=== PATIENT | male | born 1965 | race Caucasian/White ===

== ENCOUNTER 2019-11-02 13:27 | Emergency (ER) | payer OTHER ==
[2019-11-02] MEDS ORDERED: Sodium Chloride 0.9% 10 ML Syringe FLUSH PRN (14:04)
[2019-11-02] MEDS ORDERED: Sodium Chloride 0.9% 1,000 ML IV ONE (14:04)
--- NOTE | 2019-11-02 14:31 | EDM.PDOC ---
ED HPI GENERAL MEDICAL PROBLEM - General Chief Complaint: Respiratory Problem Stated Complaint: LOW BLOOD PRESSURE SENT BY [facility] Time Seen by Provider: 11/02/19 13:45 Source of Information: Reports: Patient, Old Records (from [place] Visit, plus chest x-rays pushed to us), RN Notes Reviewed History Limitations: Reports: No Limitations - History of Present Illness INITIAL COMMENTS - FREE TEXT/NARRATIVE: Patient is a 54-year-old male who presents to the ED for the evaluation of low blood pressure. Patient states that he was sent here by the [place] walk-in clinic. He notes that he has been sick for around 1 week now, he went to the walk-in clinic beginning of this last week, had a chest x-ray done and was given a shot of 80 mg Depo-Medrol. He was given an albuterol inhaler, and had his nebulizer treatments refilled. He notes however nothing is really gotten much better over the week, and he states that he has a decreased appetite and has not really been eating much. He was also diagnosed with thrush again at the walk-in clinic today. He thinks that this might be part of the reason why he was having issues not eating, as he states everything tasted horrible. He does note that he is a smoker, 1 pack/day for 40 years, and he has not had any formal diagnosis of COPD. Patient's lab work done at the walk-in clinic demonstrated a white blood cell count that is within normal limits, hemoglobin that is mildly elevated at 17.7 with an increased hematocrit of 50.7. Platelet count was 101 slightly decreased. No metabolic panel was done at today's visit , but he did have a basic metabolic panel done on the when he was originally evaluated, and there were no abnormalities noted. Of note the patient's blood pressure at time of triage was 104/71, and he was mildly orthostatic as per nursing at triage. Patient today is complaining of generalized body aches, a cough that is productive at times, no fevers no chills no nausea no vomiting no diarrhea no abdominal pain. 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 Social & Family History - Tobacco Use Smoking Status *Q: Heavy Tobacco Smoker Years of Tobacco use: 40 Packs/Tins Daily: 1 - Caffeine Use Caffeine Use: Reports: Coffee - Alcohol Use Days Per Week of Alcohol Use: 7 Number of Drinks Per Day: 2 Total Drinks Per Week: 14 Alcohol Use Frequency: Daily - Recreational Drug Use Recreational Drug Use: No ED ROS GENERAL - Review of Systems Review Of Systems: See Below Constitutional: Reports: Malaise (generalized), Decreased Appetite. Denies: Fever, Chills, Weight Loss Respiratory: Reports: Cough (intermittent productive cough). Denies: Shortness of Breath Cardiovascular: Denies: Chest Pain GI/Abdominal: Reports: Decreased Appetite. Denies: Abdominal Pain, Constipation , Diarrhea, Nausea, Vomiting Skin: Denies: Cyanosis Neurological: Denies: Headache ED EXAM, GENERAL - Physical Exam Exam: See Below Exam Limited By: No Limitations General Appearance: Alert, WD/WN, No Apparent Distress Eye Exam: Bilateral Eye: EOMI, Normal Inspection, PERRL Respiratory/Chest: No Respiratory Distress, Lungs Clear, No Accessory Muscle Use , Chest Non-Tender, Decreased Breath Sounds (diffuse bilaterally) Cardiovascular: Normal Peripheral Pulses, Regular Rate, Rhythm, No Edema, No Murmur Peripheral Pulses: 3+: Radial (L), Radial (R) GI/Abdominal: Normal Bowel Sounds, Soft, Non-Tender, No Distention, No Mass Extremities: Normal Inspection, Normal Capillary Refill Neurological: Alert, Oriented, Normal Cognition, No Motor/Sensory Deficits Psychiatric: Normal Affect, Normal Mood Skin Exam: Warm, Dry, Intact, Normal Color, No Rash Course - Vital Signs Last Recorded V/S: Last Vital Signs Temp 98.8 F 11/02/19 13:35 Pulse 88 11/02/19 13:35 Resp 20 11/02/19 13:35 BP 104/71 11/02/19 13:35 Pulse Ox 91 L 11/02/19 13:35 Orthostatic Blood Pressure [ 89/64 Standing] Orthostatic Blood Pressure [ 99/63 Sitting] Orthostatic Blood Pressure [ 97/65 Supine] - Orders/Labs/Meds Orders: Active Orders 24 hr Category Date Time Status Orthostatic Vital Signs [RC] ASDIRECTED Care 11/02/19 13:52 Ordered Peripheral IV Care [RC] . DIRECTED Care 11/02/19 14:04 Ordered Sodium Chloride 0.9% [Saline Flush] Med 11/02/19 14:04 Ordered 10 ml FLUSH ASDIRECTED PRN Peripheral IV Insertion Adult [OM.PC] Stat Oth 11/02/19 14:04 Ordered Medication Orders Sodium Chloride (Saline Flush) 10 ml FLUSH ASDIRECTED PRN PRN Reason: Keep Vein Open Last Admin: 11/02/19 14:28 Dose: 10 ml Meds: Medications Generic Name Dose Route Start Last Admin Trade Name Freq PRN Reason Stop Dose Admin Sodium Chloride 10 ml 11/02/19 14:04 11/02/19 14:28 Saline Flush FLUSH 10 ml ASDIRECTED PRN Administration Keep Vein Open Discontinued Medications Generic Name Dose Route Start Last Admin Trade Name Freq PRN Reason Stop Dose Admin Sodium Chloride 1,000 mls @ 999 mls/hr 11/02/19 14:04 11/02/19 14:29 Normal Saline IV 11/02/19 15:04 999 mls/hr ONETIME ONE Administration - Re-Assessments/Exams Free Text/Narrative Re-Assessment/Exam: 11/02/19 14:39 Patient presents to the ED for the evaluation of his low blood pressure that was discovered at walk-in clinic today. To the patient's symptomology, I will check an influenza swab as I do not see one that was done on his visits at [place] at 10/30 or 11/02. He will be given an IV with some IV fluids as well for his blood pressure, and this will be reassessed when the IV fluids are done. No labs will be redrawn. 11/02/19 16:03 Patient influenza screen is back, and is negative. Will discharge home with general recommendations. Departure - Departure Time of Disposition: 16:04 Disposition: Home, Self-Care 01 Condition: Fair Clinical Impression: Low blood pressure reading - Discharge Information *PRESCRIPTION DRUG MONITORING PROGRAM REVIEWED*: No *COPY OF PRESCRIPTION DRUG MONITORING REPORT IN PATIENT JOSE MARIA: No Instructions: Chronic Obstructive Pulmonary Disease Exacerbation, [id number] Referrals: PCP,None [Primary Care Provider] - Forms: ED Department Discharge Additional Instructions: You were evaluated in the ER today regarding your low blood pressure. You were given IV fluids and management of this. Your influenza screen was negative at today's visit. This does not mean however just because the flu screen is negative, that you do not have influenza. As this is not a perfect test. The symptoms you are experiencing, would be more consistent with a diagnosis of influenza at this time. Recommend general symptomatic treatment, use [id number] medications such as Tylenol/ibuprofen, in general other cold/flu relief for symptomatic control. Please take the medication for your thrush as directed, as this will need to be cleared up. Recommend clear fluids, or clear liquid diet and advance to bland as tolerated over the next 24 to 48 hours. Please return to the ER at any time if your symptoms change or worsen. Sepsis Event Note - Evaluation Sepsis Screening Result: No Definite Risk - Focused Exam Vital Signs: Vital Signs Temp Pulse Resp BP Pulse Ox 11/02/19 13:35 98.8 F 88 20 104/71 91 L Date Exam was Performed: 11/02/19 Time Exam was Performed: 16:03 - My Orders Last 24 Hours: My Active Orders 11/02/19 13:52 Orthostatic Vital Signs [RC] ASDIRECTED 11/02/19 14:04 Peripheral IV Care [RC] . DIRECTED Sodium Chloride 0.9% [Saline Flush] 10 ml FLUSH ASDIRECTED PRN Peripheral IV Insertion Adult [OM.PC] Stat - Assessment/Plan Last 24 Hours: My Active Orders 11/02/19 13:52 Orthostatic Vital Signs [RC] ASDIRECTED 11/02/19 14:04 Peripheral IV Care [RC] . DIRECTED Sodium Chloride 0.9% [Saline Flush] 10 ml FLUSH ASDIRECTED PRN Peripheral IV Insertion Adult [OM.PC] Stat
== END 2019-11-02 16:20 | disposition home or self-care (01) ==
LOC: JD.ED 13:27
DX: R03.1 Nonspecific low blood-pressure reading (principal); F17.210 Nicotine dependence, cigarettes, uncomplicated
CPT/HCPCS: 87804; 96360; 99284; J7030; 99283

== ENCOUNTER 2019-11-05 07:34 | Inpatient (IN) | payer OTHER ==
[2019-11-05] MEDS ORDERED: Albuterol/Ipratropium 3.0-0.5 MG/3 ML Neb Soln NEB ONE (07:55)
[2019-11-05] MEDS ORDERED: methylPREDNISolone Sodium Succinate 125 MG/2 ML SDV IVPUSH ONE (07:55)
[2019-11-05] MEDS ORDERED: cefTRIAXone 2 GM in Sodium Chloride 0.9% 100 ML IV ONE (07:56)
--- NOTE | 2019-11-05 08:00 | EDM.PDOC ---
ED HPI GENERAL MEDICAL PROBLEM - General Chief Complaint: Respiratory Problem Stated Complaint: COUGH/SOB Time Seen by Provider: 11/05/19 07:42 Source of Information: Reports: Patient, Family History Limitations: Reports: No Limitations - History of Present Illness INITIAL COMMENTS - FREE TEXT/NARRATIVE: The patient presents with shortness of breath and productive cough. This has been going on since about October 29. He was seen at the clinic a couple times and once here in the ER. He was given some solu-medrol, albuterol inhaler and some nystatin for oral thrush. He has gotten worse. He denies having a fever. He has no formal diagnosis of COPD but he does smoke but not since he has been sick. He has not been able to eat but he has been drinking fluids. He has no other health problems. He has no abdominal pain, nausea or vomiting. His oxygen saturations were 84% on arrival. He was put on oxygen. Onset: Gradual Duration: Week(s): Severity: Moderate Improves with: Reports: None Worsens with: Reports: None Associated Symptoms: Reports: Cough, Fever/Chills, Shortness of Breath. Denies : Chest Pain, Headaches, Nausea/Vomiting Generalized Pain Score (Numeric/FACES): 6 - Related Data Allergies Allergy/AdvReac Type Severity Reaction Status Date / Time No Known Allergies Allergy Verified 11/05/19 07:48 Home Meds: Home Meds Albuterol Sulfate [Albuterol Sulfate Hfa] 1 - 2 puff INH ASDIRECTED 11/05/19 [ History] Nystatin 100,000 unit PO QID 11/05/19 [History] Past Medical History HEENT History: Reports: Retinal Detachment Respiratory History: Reports: Bronchitis, Recurrent, COPD (not officially diagnosed, but with smoking history he clinical has COPD, likely emphysema type) , Pneumonia, Recurrent - Infectious Disease History Infectious Disease History: Reports: Chicken Pox, Mumps - Past Surgical History HEENT Surgical History: Reports: Detached Retina Musculoskeletal Surgical History: Reports: Other (See Below) Other Musculoskeletal Surgeries/Procedures:: discs replaced to neck. Social & Family History - Caffeine Use Caffeine Use: Reports: Coffee ED ROS GENERAL - Review of Systems Review Of Systems: See Below Constitutional: Reports: Fever, Chills HEENT: Reports: No Symptoms Respiratory: Reports: Shortness of Breath, Cough Cardiovascular: Reports: No Symptoms Endocrine: Reports: No Symptoms GI/Abdominal: Reports: No Symptoms : Reports: No Symptoms Musculoskeletal: Reports: No Symptoms ED EXAM, GENERAL - Physical Exam Exam: See Below Exam Limited By: No Limitations General Appearance: Alert, No Apparent Distress Ears: Normal External Exam Nose: Normal Inspection Head: Atraumatic, Normocephalic Neck: Normal Inspection Respiratory/Chest: No Respiratory Distress, Decreased Breath Sounds (more in the right lower lobe), Rhonchi Cardiovascular: Regular Rate, Rhythm, No Edema, No Murmur GI/Abdominal: Soft, Non-Tender, No Organomegaly, No Mass Back Exam: Normal Inspection Extremities: Normal Inspection Course - Vital Signs Last Recorded V/S: Last Vital Signs Temp 98.0 F 11/05/19 07:42 Pulse 101 H 11/05/19 07:42 Resp 20 11/05/19 07:42 BP 120/74 11/05/19 07:42 Pulse Ox 92 L 11/05/19 09:30 - Orders/Labs/Meds Orders: Active Orders 24 hr Category Date Time Status Cardiac Monitoring [RC] . DIRECTED Care 11/05/19 07:53 Active Oxygen Therapy [RC] PRN Care 11/05/19 07:53 Active Peripheral IV Care [RC] . DIRECTED Care 11/05/19 07:54 Active RT Aerosol Therapy [RC] ASDIRECTED Care 11/05/19 07:55 Active RT Aerosol Therapy [RC] ASDIRECTED Care 11/05/19 09:30 Active Chest 2V [CR] Stat Exams 11/05/19 07:54 Taken CULTURE BLOOD [BC] Stat Lab 11/05/19 07:54 Ordered CULTURE BLOOD [BC] Stat Lab 11/05/19 07:54 Ordered Sodium Chloride 0.9% [Normal Saline] 1,000 ml Med 11/05/19 08:00 Active IV ASDIRECTED Sodium Chloride 0.9% [Saline Flush] Med 11/05/19 07:53 Active 10 ml FLUSH ASDIRECTED PRN Blood Culture x2 Reflex Set [OM.PC] Stat Oth 11/05/19 07:54 Ordered Peripheral IV Insertion Adult [OM.PC] Stat Oth 11/05/19 07:53 Ordered Medication Orders Sodium Chloride (Normal Saline) 1,000 mls @ 125 mls/hr IV ASDIRECTED [facility] Last Admin: 11/05/19 08:19 Dose: 125 mls/hr Sodium Chloride (Saline Flush) 10 ml FLUSH ASDIRECTED PRN PRN Reason: Keep Vein Open Last Admin: 11/05/19 08:22 Dose: 10 ml Labs: Laboratory Tests 11/05/19 11/05/19 11/05/19 Range/Units 08:10 08:10 08:10 WBC 6.66 (4.23-9.07) K/mm3 RBC 5.00 (4.63-6.08) M/mm3 Hgb 15.1 (13.7-17.5) gm/dl Hct 42.8 (40.1-51.0) % MCV 85.6 (79.0-92.2) fl MCH 30.2 (25.7-32.2) pg MCHC 35.3 (32.2-35.5) g/dl RDW Std Deviation 43.0 (35.1-43.9) fL Plt Count 87 L (163-337) K/mm3 MPV 10.3 (9.4-12.3) fl Neut % (Auto) 86.9 H (34.0-67.9) % Lymph % (Auto) 8.3 L (21.8-53.1) % Glascock % (Auto) 3.8 L (5.3-12.2) % Eos % (Auto) 0 L (0.8-7.0) Baso % (Auto) 0.5 (0.1-1.2) % Neut # (Auto) 5.80 H (1.78-5.38) K/mm3 Lymph # (Auto) 0.55 L (1.32-3.57) K/mm3 Gl[place]ock # (Auto) 0.25 L (0.30-0.82) K/mm3 Eos # (Auto) 0.00 L (0.04-0.54) K/mm3 Baso # (Auto) 0.03 (0.01-0.08) K/mm3 Manual Slide Review Abnormal smear Puncture Site ABG pH (7.35-7.45) ABG pCO2 (35.0-45.0) mmHg ABG pO2 (80.0-100.0) mmHg ABG HCO3 (22.0-26.0) meq/L ABG O2 Saturation (96.0-97.0) % ABG Base Excess (-2-2.0) Jj Test O2 Delivery Device Oxygen Flow Rate FiO2 (21.00-100.00) % Sodium 133 L (136-145) mEq/L Potassium 4.6 (3.5-5.1) mEq/L Chloride 99 (98-107) mEq/L Carbon Dioxide 21 (21-32) mEq/L Anion Gap 17.6 H (5-15) BUN 33 H (7-18) mg/dL Creatinine 1.1 (0.7-1.3) mg/dL Est Cr Clr Drug Dosing 74.57 mL/min Estimated GFR (MDRD) > 60 (>60) mL/min BUN/Creatinine Ratio 30.0 H (14-18) Glucose 118 H (74-106) mg/dL Lactic Acid 1.1 (0.4-2.0) mmol/L Calcium 8.1 L (8.5-10.1) mg/dL Total Bilirubin 0.3 (0.2-1.0) mg/dL AST 183 H (15-37) U/L ALT 91 H (16-63) U/L Alkaline Phosphatase 45 L (46-116) U/L C-Reactive Protein 18.9 H* (<1.0) mg/dL Total Protein 7.1 (6.4-8.2) g/dl Albumin 2.6 L (3.4-5.0) g/dl Globulin 4.5 gm/dL Albumin/Globulin Ratio 0.6 L (1-2) 11/05/19 Range/Units 09:29 WBC (4.23-9.07) K/mm3 RBC (4.63-6.08) M/mm3 Hgb (13.7-17.5) gm/dl Hct (40.1-51.0) % MCV (79.0-92.2) fl MCH (25.7-32.2) pg MCHC (32.2-35.5) g/dl RDW Std Deviation (35.1-43.9) fL Plt Count (163-337) K/mm3 MPV (9.4-12.3) fl Neut % (Auto) (34.0-67.9) % Lymph % (Auto) (21.8-53.1) % Glascock % (Auto) (5.3-12.2) % Eos % (Auto) (0.8-7.0) Baso % (Auto) (0.1-1.2) % Neut # (Auto) (1.78-5.38) K/mm3 Lymph # (Auto) (1.32-3.57) K/mm3 Glascock # (Auto) (0.30-0.82) K/mm3 Eos # (Auto) (0.04-0.54) K/mm3 Baso # (Auto) (0.01-0.08) K/mm3 Manual Slide Review Puncture Site Rt radial ABG pH 7.41 (7.35-7.45) ABG pCO2 33.6 L (35.0-45.0) mmHg ABG pO2 59.0 L (80.0-100.0) mmHg ABG HCO3 21.0 L (22.0-26.0) meq/L ABG O2 Saturation 88.9 L (96.0-97.0) % ABG Base Excess -2.3 L (-2-2.0) Jj Test Positive O2 Delivery Device Nasal cannula Oxygen Flow Rate 4.0 FiO2 0.00 L (21.00-100.00) % Sodium (136-145) mEq/L Potassium (3.5-5.1) mEq/L Chloride (98-107) mEq/L Carbon Dioxide (21-32) mEq/L Anion Gap (5-15) BUN (7-18) mg/dL Creatinine (0.7-1.3) mg/dL Est Cr Clr Drug Dosing mL/min Estimated GFR (MDRD) (>60) mL/min BUN/Creatinine Ratio (14-18) Glucose (74-106) mg/dL Lactic Acid (0.4-2.0) mmol/L Calcium (8.5-10.1) mg/dL Total Bilirubin (0.2-1.0) mg/dL AST (15-37) U/L ALT (16-63) U/L Alkaline Phosphatase (46-116) U/L C-Reactive Protein (<1.0) mg/dL Total Protein (6.4-8.2) g/dl Albumin (3.4-5.0) g/dl Globulin gm/dL Albumin/Globulin Ratio (1-2) Meds: Medications Generic Name Dose Route Start Last Admin Trade Name Freq PRN Reason Stop Dose Admin Sodium Chloride 1,000 mls @ 125 mls/hr 11/05/19 08:00 11/05/19 08:19 Normal Saline IV 125 mls/hr ASDIRECTED KYLEE Administration Sodium Chloride 10 ml 11/05/19 07:53 11/05/19 08:22 Saline Flush FLUSH 10 ml ASDIRECTED PRN Administration Keep Vein Open Discontinued Medications Generic Name Dose Route Start Last Admin Trade Name Jennifer PRN Reason Stop Dose Admin Albuterol 2.5 mg 11/05/19 09:30 11/05/19 10:05 Proventil Neb Soln NEB 11/05/19 09:31 2.5 mg ONETIME ONE Administration Albuterol/Ipratropium 3 ml 11/05/19 07:55 11/05/19 08:02 Duoneb 3.0-0.5 Mg/3 Ml NEB 11/05/19 07:56 3 ml ONETIME ONE Administration Hydromorphone HCl 0.5 mg 11/05/19 08:52 11/05/19 09:00 Dilaudid IVPUSH 11/05/19 08:53 0.5 mg ONETIME ONE Administration Ceftriaxone Sodium 2 gm/ 100 mls @ 200 mls/hr 11/05/19 07:56 11/05/19 08:34 Sodium Chloride IV 11/05/19 08:25 200 mls/hr ONETIME ONE Administration Methylprednisolone Sodium Succinate 125 mg 11/05/19 07:55 11/05/19 08:19 Solu-Medrol IVPUSH 11/05/19 07:56 125 mg ONETIME ONE Administration - Re-Assessments/Exams Free Text/Narrative Re-Assessment/Exam: 11/05/19 08:07 I ordered oxygen, IV NS at 125ml/hr, duoneb, solu-medrol 125mg IV, labs blood cultures, CXR and rocephin 2 grams IV. 11/05/19 09:27 His CBC looks good. His Na was low at 133. His anion gap was elevated at 17.6. His creatinine was 1.1. His glucose is 118. His AST was 183. His ALT was elevated at 91. His CRP is pending. 11/05/19 10:37 The lactic acid is negative. 11/05/19 10:41 His CRP is elevated at 18.2. His oxygen saturations were 89% on 3L. I upped his oxygen and did an ABG. His pO2 was 59 and pH was normal. His PCO2 was 33.6. He will need to be admitted. I called Dr Allen and she agreed to the admission. Departure - Departure Time of Disposition: 10:45 Disposition: Admitted As Inpatient 64 Condition: Poor Clinical Impression: Hypoxia Pneumonia Qualifiers: Pneumonia type: due to unspecified organism Laterality: right Lung location: middle lobe of lung Qualified Code(s): J18.9 - Pneumonia, unspecified organism - Discharge Information Referrals: PCP,None [Primary Care Provider] - Forms: ED Department Discharge Sepsis Event Note - Evaluation Sepsis Screening Result: No Definite Risk - Focused Exam Vital Signs: Vital Signs Temp Pulse Resp BP Pulse Ox Pulse Ox 11/05/19 09:30 92 L 11/05/19 07:55 90 L 11/05/19 07:42 98.0 F 101 H 20 120/74 84 L Date Exam was Performed: 11/05/19 Time Exam was Performed: 10:41 - My Orders Last 24 Hours: My Active Orders 11/05/19 07:53 Cardiac Monitoring [RC] . DIRECTED Oxygen Therapy [RC] PRN Sodium Chloride 0.9% [Saline Flush] 10 ml FLUSH ASDIRECTED PRN Peripheral IV Insertion Adult [OM.PC] Stat 11/05/19 07:54 Peripheral IV Care [RC] . DIRECTED Chest 2V [CR] Stat CULTURE BLOOD [BC] Stat CULTURE BLOOD [BC] Stat Blood Culture x2 Reflex Set [OM.PC] Stat 11/05/19 07:55 RT Aerosol Therapy [RC] ASDIRECTED 11/05/19 08:00 Sodium Chloride 0.9% [Normal Saline] 1,000 ml IV ASDIRECTED 11/05/19 09:30 RT Aerosol Therapy [RC] ASDIRECTED - Assessment/Plan Last 24 Hours: My Active Orders 11/05/19 07:53 Cardiac Monitoring [RC] . DIRECTED Oxygen Therapy [RC] PRN Sodium Chloride 0.9% [Saline Flush] 10 ml FLUSH ASDIRECTED PRN Peripheral IV Insertion Adult [OM.PC] Stat 11/05/19 07:54 Peripheral IV Care [RC] . DIRECTED Chest 2V [CR] Stat CULTURE BLOOD [BC] Stat CULTURE BLOOD [BC] Stat Blood Culture x2 Reflex Set [OM.PC] Stat 11/05/19 07:55 RT Aerosol Therapy [RC] ASDIRECTED 11/05/19 08:00 Sodium Chloride 0.9% [Normal Saline] 1,000 ml IV ASDIRECTED 11/05/19 09:30 RT Aerosol Therapy [RC] ASDIRECTED
[2019-11-05] MEDS: Sodium Chloride 0.9% 1,000 ML IV SCH ×2 (08:19→17:58)
[2019-11-05] MEDS: Sodium Chloride 0.9% 10 ML Syringe FLUSH PRN (08:22)
[2019-11-05] MEDS ORDERED: HYDROmorphone 0.5 MG/0.5 ML Syringe IVPUSH ONE (08:52)
[2019-11-05] MEDS ORDERED: Albuterol 0.083% 2.5 MG/3 ML Neb Soln NEB ONE (09:30)
[2019-11-05] MEDS ORDERED: Diphenhydramine/Lidocaine/MagAl/Simethicone 119 ML Bottle PO PRN (11:19)
--- NOTE | 2019-11-05 11:48 | PCM.HP.2 ---
H&P History of Present Illness - General Date of Service: 11/05/19 Admit Problem/Dx: Admission Diagnosis/Problem Admission Diagnosis/Problem Pneumonia - History of Present Illness Initial Comments - Free Text/Narative: This is a 54 year old male who is a daily smoker and comes tot he ED complaining of worsening productive cough and shortness of breath. As per patient he started feeling ill around [place] when he started having coughing episodes productive of white sputum associated with intermittent shortness of breath, this continued to get worse for which he consulted outpatient clinic, he was diagnosed with oral thrush and given ProAir as needed prescription. He reconsulted the clinic twice and was sent over here for hypotension a couple of days ago. He returns today due to worsening symptoms with productive cough or different colors but thicker . States his mouth continues to hurt despite using scheduled Nystatin. He associates symptoms with fatigue, malaise, weakness, loss of appetite, diaphoresis, chills Denies any sick contacts Generalized Pain Score (Numeric/FACES): 6 - Related Data Allergies/Adverse Reactions: Allergies Allergy/AdvReac Type Severity Reaction Status Date / Time No Known Allergies Allergy Verified 11/05/19 07:48 Home Medications: Home Meds Albuterol Sulfate [Albuterol Sulfate Hfa] 1 - 2 puff INH ASDIRECTED 11/05/19 [ History] Nystatin 100,000 unit PO QID 11/05/19 [History] Past Medical History HEENT History: Reports: Retinal Detachment Respiratory History: Reports: Bronchitis, Recurrent, COPD, Pneumonia, Recurrent - Infectious Disease History Infectious Disease History: Reports: Chicken Pox, Mumps - Past Surgical History HEENT Surgical History: Reports: Detached Retina Musculoskeletal Surgical History: Reports: Other (See Below) Other Musculoskeletal Surgeries/Procedures:: discs replaced to neck. Social & Family History - Caffeine Use Caffeine Use: Reports: Coffee H&P Review of Systems - Review of Systems: Review Of Systems: See Below General: Reports: Chills, Malaise, Weakness, Fatigue, Diaphoresis, Decreased Appetite, Weight Loss. Denies: Fever, Weight Gain HEENT: Reports: Sore Throat. Denies: Contact Lenses, Dysphasia, Ear Pain, Eye Pain, Glasses, Headaches, Hearing Changes, Rhinitis, Post Nasal Drip, Sinus Congestion, Vertigo, Visual Changes Pulmonary: Reports: Shortness of Breath, Wheezing, Cough, Sputum. Denies: Pleuritic Chest Pain, Hemoptysis Cardiovascular: Reports: Chest Pain, Dyspnea on Exertion, Orthopnea. Denies: Palpitations, PND, Edema, Lightheadedness, Syncope, Claudication, Blood Pressure Problem Gastrointestinal: Reports: Decreased Appetite, Difficulty Swallowing. Denies: Abdominal Pain, Anorexia, Diarrhea, Distension, Flatus, Nausea, Vomiting Genitourinary: Denies: Dysuria, Frequency, Burning, Pain, Urgency, Incontinence , Discharge, Retention Musculoskeletal: Denies: Joint Pain, Joint Swelling, Muscle Pain, Muscle Stiffness Skin: Denies: Cyanosis, Jaundice, Mottled, Pallor, Diaphoresis, Bruising Psychiatric: Denies: Confusion, Depression, Mood Lability, Anxiety Neurological: Denies: Confusion, Dizziness, Headache Exam - Exam Exam: See Below - Vital Signs Vital Signs: Last Vital Signs Temp 98.0 F 11/05/19 07:42 Pulse 101 H 11/05/19 07:42 Resp 20 11/05/19 07:42 BP 120/74 11/05/19 07:42 Pulse Ox 92 L 11/05/19 09:30 Weight: 70.307 kg - Exam Quality Assessment: Supplemental Oxygen General: Alert, Oriented, Cooperative, Moderate Distress HEENT: Conjunctiva Clear, Other (oral mucosa is dry, tongue has brown plaques, lips have thick white layeron mucosal side) Neck: Supple, Trachea Midline. No: Lymphadenopathy, Carotid Bruit Lungs: Decreased Breath Sounds, Crackles, Rales, Rhonchi. No: Stridor, Wheezing Cardiovascular: Regular Rhythm, Tachycardia. No: Systolic Murmur, Diastolic Murmur, Rubs, Gallop/S3, Gallop/S4 GI/Abdominal Exam: Normal Bowel Sounds, Soft, Non-Tender Back Exam: Other (large lipoma behind left shoulder) - Patient Data Result Diagrams: 11/05/19 08:10 11/05/19 08:10 Sepsis Event Note - Evaluation Sepsis Screening Result: No Definite Risk - Focused Exam Vital Signs: Vital Signs Temp Pulse Resp BP Pulse Ox Pulse Ox 11/05/19 09:30 92 L 11/05/19 07:55 90 L 11/05/19 07:42 98.0 F 101 H 20 120/74 84 L Date Exam was Performed: 11/05/19 Time Exam was Performed: 18:27 - Problem List (1) Pneumonia involving right lung SNOMED Code(s): 543792931 ICD Code: J18.9 - PNEUMONIA, UNSPECIFIED ORGANISM Status: Acute Current Visit: Yes (2) Hypoxemia SNOMED Code(s): 570206087 ICD Code: R09.02 - HYPOXEMIA Status: Acute Current Visit: Yes (3) Hyponatremia SNOMED Code(s): 14295277 ICD Code: E87.1 - HYPO-OSMOLALITY AND HYPONATREMIA Status: Acute Current Visit: Yes (4) Thrombocytopenia SNOMED Code(s): 662552526 ICD Code: D69.6 - THROMBOCYTOPENIA, UNSPECIFIED Status: Acute Current Visit: Yes (5) Hypoalbuminemia SNOMED Code(s): 496157543 ICD Code: E88.09 - OTH DISORDERS OF PLASMA-PROTEIN METABOLISM, NEC Status: Acute Current Visit: Yes Problem List Initiated/Reviewed/Updated: Yes Assessment/Plan Comment:: Community acquired pneumonia Pneumonia involving right lung, worse on right base Hypoxemia Active smoker Hyponatremia Worsening cough for 2 weeks O2 sat 84% on RA on admission with PaO2 59--> Started on O2 NC Does not meet sepsis criteria at this time Lactic acid is negative PLAN - Scheduled Xopenex - Scheduled Guaifenesin and Tessalon Perles - Procalcitonin - Mycoplasma antigen - S. pneumoniae antigen - Respiratory panel PCR - Influenza swab - Start on Levaquin - Blood cultured in ED - Induced sputum - Legionella serology Oral thrush Diagnosed as an outpatient 2 weeks ago and has been taking treatment as indicated Still having severe pain for which his oral intake has significantly decreased There is no obvious leukoplakia PLAN - Scheduled magic mouth wash - HIV Thrombocytopenia Pending confirmation PLAN - Repeat CBC in AM Hypoalbuminemia Patient does appear to have muscle wasting PLAN - HIV - Prealbumin - Dietary consult Current everyday smoker Smokes 1ppd for 45y PLAN - Nicotine patch - Smoking cessation counseling prior to discharge PROPHYLAXIS DVT- Lovenox GI- not indicated CODE STATUS: FULL CODE DISPOSITION: Patient comes in with community acquired pneumonia and hypoxemia, will be admitted to the floor for IV antibiotics and scheduled breathing treatments. - Mortality Measure Prognosis:: Good (PSI (pneumonia severity index) class III, mortality 0.9%)
[2019-11-05] MEDS: Levofloxacin/Dextrose 5%-Water 750 MG in Premix Bag 1 BAG IV SCH (13:29)
[2019-11-05] MEDS: Albuterol/Ipratropium 3.0-0.5 MG/3 ML Neb Soln NEB SCH ×3 (13:46→22:08)
[2019-11-05] MEDS: Benzonatate 100 MG Cap PO SCH ×2 (16:11→20:17)
[2019-11-05] MEDS: Diphenhydramine/Lidocaine/MagAl/Simethicone 119 ML Bottle PO PRN (18:50)
[2019-11-05] MEDS: guaiFENesin 600 MG Tab.ER PO SCH (20:17)
[2019-11-05] MEDS: Acetaminophen 325 MG Tab PO PRN (20:17)
[2019-11-05] MEDS ORDERED: Enoxaparin 30 MG/0.3 ML Syringe SUBCUT SCH (21:00)
[2019-11-06] MEDS: Sodium Chloride 0.9% 1,000 ML IV SCH ×2 (01:14→09:10)
[2019-11-06] MEDS: Albuterol/Ipratropium 3.0-0.5 MG/3 ML Neb Soln NEB SCH ×6 (02:17→21:17)
--- NOTE | 2019-11-06 07:25 | CR ---
Chest: Two views of the chest are obtained. Comparison: No previous chest imaging. Diffuse parenchymal density seen throughout the right lung with lesser change within the left lung base. Diaphragms are slightly flattened raising the possibility of emphysematous change. Heart is not enlarged. Upper mediastinum is normal. Previous cervical spine surgery is seen. Impression: 1. Diffuse increased density as noted above. Findings are most likely due to diffuse pneumonia. 2. Probable emphysematous change. Diagnostic code #3 This report was dictated in [place] Standard Time
[2019-11-06] MEDS: guaiFENesin 600 MG Tab.ER PO SCH ×2 (08:58→20:00)
[2019-11-06] MEDS: Benzonatate 100 MG Cap PO SCH ×3 (08:59→20:00)
[2019-11-06] MEDS: Nicotine 21 MG/24 Hr Patch TRDERM SCH (08:59)
[2019-11-06] MEDS: Diphenhydramine/Lidocaine/MagAl/Simethicone 119 ML Bottle PO PRN ×2 (09:00→19:55)
[2019-11-06] MEDS: Acetaminophen 325 MG Tab PO PRN ×2 (10:44→19:58)
[2019-11-06] MEDS ORDERED: Sodium Chloride 0.9% 1,000 ML IV SCH (11:00)
--- NOTE | 2019-11-06 12:11 | PCM.PN ---
- General Info Date of Service: 11/06/19 Subjective Update: Feeling a little better Slept better Tolerating diet Oral pain has improved - Patient Data Vitals - Most Recent: Last Vital Signs Temp 97.5 F 11/06/19 11:28 Pulse 72 11/06/19 11:28 Resp 24 H 11/06/19 11:23 BP 102/82 11/06/19 11:23 Pulse Ox 96 11/06/19 11:28 Weight - Most Recent: 66.678 kg - Exam Quality Assessment: Supplemental Oxygen General: Alert, Oriented, Cooperative, Mild Distress HEENT: Pupils Equal, Pupils Reactive Lungs: Decreased Breath Sounds, Crackles, Rales, Rhonchi. No: Rub, Stridor, Wheezing Cardiovascular: Regular Rate, Regular Rhythm. No: Murmurs, Gallops, Rubs GI/Abdominal Exam: Normal Bowel Sounds, Soft, Non-Tender Back Exam: Other (4x2cm fluctuating mass over left scapula without skin changes) Neurological: No New Focal Deficit Psy/Mental Status: Alert Sepsis Event Note - Evaluation Sepsis Screening Result: No Definite Risk - Problem List & Annotations (1) Pneumonia involving right lung SNOMED Code(s): 306590875 Code(s): J18.9 - PNEUMONIA, UNSPECIFIED ORGANISM Status: Acute Current Visit: Yes (2) Hypoxemia SNOMED Code(s): 962036886 Code(s): R09.02 - HYPOXEMIA Status: Acute Current Visit: Yes (3) Hyponatremia SNOMED Code(s): 13263632 Code(s): E87.1 - HYPO-OSMOLALITY AND HYPONATREMIA Status: Acute Current Visit: Yes (4) Thrombocytopenia SNOMED Code(s): 565037445 Code(s): D69.6 - THROMBOCYTOPENIA, UNSPECIFIED Status: Acute Current Visit: Yes (5) Hypoalbuminemia SNOMED Code(s): 562665294 Code(s): E88.09 - OTH DISORDERS OF PLASMA-PROTEIN METABOLISM, NEC Status: Acute Current Visit: Yes (6) Oral thrush SNOMED Code(s): 12606497 Code(s): B37.0 - CANDIDAL STOMATITIS Status: Acute Current Visit: Yes (7) Current smoker SNOMED Code(s): 32354033 Code(s): F17.200 - NICOTINE DEPENDENCE, UNSPECIFIED, UNCOMPLICATED Status: Acute Current Visit: Yes (8) Abnormal weight loss SNOMED Code(s): 079985130 Code(s): R63.4 - ABNORMAL WEIGHT LOSS Status: Acute Current Visit: Yes - Problem List Review Problem List Initiated/Reviewed/Updated: Yes - Plan Plan:: Community acquired pneumonia Pneumonia involving right lung, worse on right base Hypoxemia Active smoker Hyponatremia Worsening cough for 2 weeks O2 sat 84% on RA on admission with PaO2 59--> Started on O2 NC No sepsis on admission Mycoplasma and flu swab negative Rapid HIV negative PLAN - Scheduled Xopenex - Scheduled Guaifenesin and Tessalon Perles - Procalcitonin, pending - S. pneumoniae antigen - Respiratory panel PCR - Continue on Levaquin - Blood cultured in ED - Induced sputum - Legionella serology Oral thrush Diagnosed as an outpatient 2 weeks ago and has been taking treatment as indicated Still having severe pain for which his oral intake has significantly decreased There is no obvious leukoplakia Rapid HIV negative PLAN - Scheduled magic mouth wash - Confirmatory HIV test is pending Thrombocytopenia, improving No signs of clumping on smear PLAN - Repeat CBC in AM Hypoalbuminemia Patient does appear to have muscle wasting PLAN - Prealbumin, pending - Dietary consult Current everyday smoker Smokes 1ppd for 45y PLAN - Nicotine patch - Smoking cessation counseling prior to discharge PROPHYLAXIS DVT- Lovenox GI- not indicated CODE STATUS: FULL CODE DISPOSITION: Patient comes in with community acquired pneumonia and hypoxemia, will remain admitted for IV antibiotics and scheduled breathing treatments and oxygen supplementation
[2019-11-06] MEDS: Levofloxacin/Dextrose 5%-Water 750 MG in Premix Bag 1 BAG IV SCH (12:46)
[2019-11-06] MEDS ORDERED: Lidocaine 1% 10 ML MDV INJECT ONE (14:00)
--- NOTE | 2019-11-06 14:10 | PCM.PRNOTE ---
- Free Text/Narrative Note: Incision and Drainage Procedure Note PRE-OP DIAGNOSIS: Abscess over left scapula POST-OP DIAGNOSIS: Loculated abscess over left scapula PROCEDURE: incision and drainage of abscess PERFORMING PHYSICIAN: Paty Allen MD PROCEDURE: A timeout protocol was performed prior to initiating the procedure. The area was prepared and draped in the usual, sterile manner. The site was anesthetized with 1% lidocaine with epinephrine. A linear incision along the local skin lines was made and the purulent material expressed. The abscess was explored thoroughly and sequestered pockets were opened. Bleeding was minimal. Packing done The patient tolerated the procedure well without complications.
[2019-11-06] MEDS ORDERED: Diltiazem 50 MG/10 ML SDV IVPUSH ONE (20:36)
[2019-11-06] MEDS: Diltiazem 125 MG in Sodium Chloride 0.9% 100 ML IV SCH (22:37)
[2019-11-06] MEDS: Sodium Chloride 0.9% 10 ML Syringe FLUSH PRN (22:38)
[2019-11-07] MEDS: Albuterol/Ipratropium 3.0-0.5 MG/3 ML Neb Soln NEB SCH ×3 (01:59→09:03)
--- NOTE | 2019-11-07 07:40 | PCM.PN ---
- General Info Date of Service: 11/07/19 Admission Dx/Problem (Free Text): Admission Diagnosis/Problem Admission Diagnosis/Problem Pneumonia Subjective Update: No overnight issues. She feels about the same. Still has wet cough. Appetite is about the same. His viral studies show Influenza A via PCR. - Review of Systems General: Reports: Fatigue, Malaise. Denies: Fever, Chills HEENT: Reports: No Symptoms Pulmonary: Reports: Cough, Sputum. Denies: Shortness of Breath Cardiovascular: Denies: Chest Pain, Palpitations, Dyspnea on Exertion Gastrointestinal: Reports: Decreased Appetite. Denies: Abdominal Pain, Nausea, Vomiting Genitourinary: Reports: No Symptoms Musculoskeletal: Reports: No Symptoms Skin: Reports: No Symptoms Neurological: Denies: Confusion, Pre-Existing Deficit, Weakness Psychiatric: Denies: Confusion, Anxiety - Patient Data Vitals - Most Recent: Last Vital Signs Temp 36.4 C 11/07/19 04:00 Pulse 121 H 11/06/19 23:01 Resp 22 H 11/07/19 07:00 BP 115/80 11/07/19 07:00 Pulse Ox 96 11/07/19 07:01 Weight - Most Recent: 68.039 kg I&O - Last 24 Hours: Intake & Output 11/06/19 11/07/19 11/07/19 22:59 06:59 14:59 Intake Total 2430 666 Output Total 300 825 Balance 2130 -159 Lab Results Last 24 Hours: Laboratory Results - last 24 hr 11/05/19 11/06/19 Range/Units 11:15 08:27 Puncture Site Rt radial ABG pH 7.42 (7.35-7.45) ABG pCO2 31.1 L (35.0-45.0) mmHg ABG pO2 73.0 L (80.0-100.0) mmHg ABG HCO3 19.9 L (22.0-26.0) meq/L ABG O2 Saturation 94.1 L (96.0-97.0) % ABG Base Excess -3.0 L (-2-2.0) Jj Test Positive O2 Delivery Device Nasal cannula Oxygen Flow Rate 4.0 FiO2 36.00 (21.00-100.00) % Prealbumin 8.4 L (17.0-34.0) mg/dL Abdoul Results Last 24 Hours: Microbiology 11/05/19 13:45 Streptococcus pneumoniae Antigen (M - Final Urine 11/05/19 13:45 Legionella Urinary Antigen - Final Urine 11/05/19 08:25 Aerobic Blood Culture - Preliminary Blood - Venous - Lab Draw NO GROWTH AFTER 1 DAY Anaerobic Blood Culture - Preliminary NO GROWTH AFTER 1 DAY 11/05/19 08:10 Aerobic Blood Culture - Preliminary Blood - Venous Gram Positive Cocci In Chains Anaerobic Blood Culture - Preliminary NO GROWTH AFTER 1 DAY 11/05/19 13:45 Gram Stain - Final Sputum - Expectorated Sputum Culture - Preliminary Med Orders - Current: Current Medications Acetaminophen (Tylenol) 650 mg PO Q4H PRN PRN Reason: Pain (Mild 1-3)/fever Last Admin: 11/06/19 19:58 Dose: 650 mg Albuterol/Ipratropium (Duoneb 3.0-0.5 Mg/3 Ml) 3 ml NEB Q4HRRT [facility] Last Admin: 11/07/19 05:05 Dose: 3 ml Benzonatate (Tessalon Perles) 100 mg PO TID [facility] Last Admin: 11/06/19 20:00 Dose: 100 mg Diphenhydr/Magaldrate/Simeth/Lidoca (First-Mouthwash Blm Susp) 30 ml PO Q8H PRN PRN Reason: Other Last Admin: 11/06/19 19:55 Dose: 30 ml Guaifenesin (Mucinex) 600 mg PO BID [facility] Last Admin: 11/06/19 20:00 Dose: 600 mg Levofloxacin/Dextrose 750 mg/ (Premix) 150 mls @ 100 mls/hr IV Q24H [facility] Last Admin: 11/06/19 12:46 Dose: 100 mls/hr Diltiazem HCl 125 mg/ Sodium (Chloride) 125 mls @ 5 mls/hr IV TITRATE [facility]; Protocol Last Titration: 11/07/19 02:30 Dose: 10 mg/hr, 10 mls/hr Miscellaneous Information (Remove Patch) 1 ea TRDERM DAILY [facility] Nicotine (Habitrol) 21 mg TRDERM DAILY [facility] Last Admin: 11/06/19 08:59 Dose: Not Given Sodium Chloride (Saline Flush) 10 ml FLUSH ASDIRECTED PRN PRN Reason: Keep Vein Open Last Admin: 11/06/19 22:38 Dose: 10 ml Discontinued Medications Albuterol (Proventil Neb Soln) 2.5 mg NEB ONETIME ONE Stop: 11/05/19 09:31 Last Admin: 11/05/19 10:05 Dose: 2.5 mg Albuterol/Ipratropium (Duoneb 3.0-0.5 Mg/3 Ml) 3 ml NEB ONETIME ONE Stop: 11/05/19 07:56 Last Admin: 11/05/19 08:02 Dose: 3 ml Diltiazem HCl (Cardizem) 10 mg IVPUSH ONETIME ONE Stop: 11/06/19 20:37 Last Admin: 11/06/19 20:42 Dose: 10 mg Diphenhydr/Magaldrate/Simeth/Lidoca (First-Mouthwash Blm Susp) 30 ml PO Q8HR PRN PRN Reason: Other Enoxaparin Sodium (Lovenox) 30 mg SUBCUT Q24H [facility] Hydromorphone HCl (Dilaudid) 0.5 mg IVPUSH ONETIME ONE Stop: 11/05/19 08:53 Last Admin: 11/05/19 09:00 Dose: 0.5 mg Ceftriaxone Sodium 2 gm/ (Sodium Chloride) 100 mls @ 200 mls/hr IV ONETIME ONE Stop: 11/05/19 08:25 Last Admin: 11/05/19 08:34 Dose: 200 mls/hr Sodium Chloride (Normal Saline) 1,000 mls @ 125 mls/hr IV ASDIRECTED [facility] Last Admin: 11/06/19 09:10 Dose: 125 mls/hr Sodium Chloride (Normal Saline) 1,000 mls @ 75 mls/hr IV ASDIRECTED [facility] Lidocaine HCl (Xylocaine 1%) 0 ml INJECT ONETIME ONE Stop: 11/06/19 14:01 Last Admin: 11/06/19 16:24 Dose: 5 ml Methylprednisolone Sodium Succinate (Solu-Medrol) 125 mg IVPUSH ONETIME ONE Stop: 11/05/19 07:56 Last Admin: 11/05/19 08:19 Dose: 125 mg - Exam General: Alert, Oriented, Cooperative, No Acute Distress HEENT: Pupils Equal, Pupils Reactive, EOMI, Mucous Membr. Moist/[place] Neck: Supple Lungs: Normal Respiratory Effort, Rhonchi Cardiovascular: Regular Rate, Regular Rhythm GI/Abdominal Exam: Normal Bowel Sounds, Soft, Non-Tender, No Organomegaly, No Distention, No Abnormal Bruit (Male) Exam: Deferred Back Exam: Normal Inspection, Other (lesion:dressed and covered) Extremities: Normal Inspection, Normal Range of Motion, Non-Tender, No Pedal Edema, Normal Capillary Refill Peripheral Pulses: 2+: Posterior Tibial (L), Posterior Tibial (R), Dorsalis Pedis (L), Dorsalis Pedis (R) Skin: Warm, Dry, Intact Wound/Incisions: Healing Well, Dressing Dry and Intact Neurological: No New Focal Deficit Psy/Mental Status: Alert, Normal Affect, Normal Mood EKG INTERPRETATION EKG Date: 11/07/19 Time: 09:31 Rhythm: A-Fib Rate (Beats/Min): 122 P-Wave: Absent Sepsis Event Note - Evaluation Sepsis Screening Result: Severe Sepsis Risk - Focused Exam Vital Signs: Vital Signs Temp Temp Pulse Resp BP BP Pulse Ox 11/07/19 07:01 96 11/07/19 07:00 22 H 115/80 95 11/07/19 06:00 24 H 110/72 95 11/07/19 05:06 11/07/19 05:00 22 H 124/74 96 11/07/19 04:00 36.4 C 22 H 105/76 96 11/07/19 03:00 22 H 113/79 95 11/07/19 02:01 97 11/07/19 02:00 22 H 108/72 95 11/07/19 01:00 24 H 107/78 95 11/07/19 00:00 36.6 C 24 H 110/70 95 11/06/19 23:01 121 H 96 11/06/19 23:00 36.7 C 24 H 121/94 H 96 11/06/19 22:45 97 11/06/19 22:35 98 11/06/19 22:00 36.6 C 24 H 128/84 96 11/06/19 21:17 11/06/19 20:37 11/06/19 20:29 11/06/19 20:26 147 H 92 L 11/06/19 19:41 37.0 C 60 24 H 123/90 93 L Pulse Ox Pulse Ox 11/07/19 07:01 11/07/19 07:00 11/07/19 06:00 11/07/19 05:06 97 11/07/19 05:00 11/07/19 04:00 11/07/19 03:00 11/07/19 02:01 96 11/07/19 02:00 11/07/19 01:00 11/07/19 00:00 11/06/19 23:01 11/06/19 23:00 11/06/19 22:45 11/06/19 22:35 11/06/19 22:00 11/06/19 21:17 94 L 11/06/19 20:37 92 L 11/06/19 20:29 95 11/06/19 20:26 11/06/19 19:41 Date Exam was Performed: 11/07/19 Time Exam was Performed: 11:39 - Problem List Review Problem List Initiated/Reviewed/Updated: Yes - Plan Plan:: Community acquired pneumonia/Pneumonia involving right lung, worse on right base Hypoxemia Active smoker Hyponatremia Influenza A infection RAD/Probable COPD Exacerbation Probable Bacteremia-positive on bottle aerobic Worsening cough for 2 weeks O2 sat 84% on RA on admission with PaO2 59--> Started on O2 NC No sepsis on admission Mycoplasma and flu swab negative Rapid HIV negative PLAN - Switched Douneb to Xopenex Q6H - Scheduled Guaifenesin and Tessalon Perles; PRN Guaifenesin/Dextromethrophan - Procalcitonin, pending - S. pneumoniae antigen-negative - Respiratory panel PCR-Influenza A positive - Continue on Levaquin - Blood cultured in ED- positive on aerobic bottle - Induced sputum - Solumedrol 40 m g IVP Q8H - Tamiflu 75 mg po BID for 10 days - Legionella serology - IS as directed Atrial Fibrillation with RVR, HR as high as 130s New onset from acute illness Moved to the unit overnight Switched Douneb to Xopenex Cardizem gtt not well controlled Metoprolol 25 mg po BID Hyperglycemia BS of 118-->249 Carries not hx/o DM of Glucose Intolerance Screen for diabetes Accu-check Q6H with ISS Abscess S/p ID Localized to his back PLAN - Consult PT for wound care Oral thrush Diagnosed as an outpatient 2 weeks ago and has been taking treatment as indicated Still having severe pain for which his oral intake has significantly decreased There is no obvious leukoplakia Rapid HIV negative PLAN - Scheduled magic mouth wash - Confirmatory HIV test is pending Thrombocytopenia, improving No signs of clumping on smear Albumin of 87 --> 116 Likely 2/2 Chronic ETOH Use PLAN - Repeat CBC in AM Hypoalbuminemia Patient does appear to have muscle wasting Albumin of 2.6 PLAN - Prealbumin, pending - Dietary consult Current everyday smoker Smokes 1ppd for 45y PLAN - Nicotine patch; patient refused - Counseled on smoking cessation PROPHYLAXIS DVT- Lovenox GI- not indicated CODE STATUS: FULL CODE DISPOSITION: Patient comes in with community acquired pneumonia and hypoxemia, will remain admitted for IV antibiotics and scheduled breathing treatments and oxygen supplementation Updated about his clinical progress.
[2019-11-07] MEDS: Diltiazem 125 MG in Sodium Chloride 0.9% 100 ML IV SCH (08:08)
[2019-11-07] MEDS: Nicotine 21 MG/24 Hr Patch TRDERM SCH (08:11)
[2019-11-07] MEDS: Oseltamivir 75 MG Cap PO SCH ×2 (08:11→20:20)
[2019-11-07] MEDS: Benzonatate 100 MG Cap PO SCH ×3 (08:11→20:20)
[2019-11-07] MEDS: guaiFENesin 600 MG Tab.ER PO SCH ×2 (08:11→20:20)
[2019-11-07] MEDS: Remove Patch*NICOTINE TRDERM SCH (08:12)
[2019-11-07] MEDS ORDERED: Metoprolol Tartrate 25 MG Tab PO SCH ×2 (09:00→21:00)
[2019-11-07] MEDS ORDERED: Rivaroxaban 10 MG Tab PO ONE (11:02)
[2019-11-07] MEDS ORDERED: 50% Dextrose in Water 50 ML Syringe IV PRN (11:22)
[2019-11-07] MEDS: Levofloxacin/Dextrose 5%-Water 750 MG in Premix Bag 1 BAG IV SCH (12:19)
[2019-11-07] MEDS: methylPREDNISolone Sodium Succinate 40 MG/1 ML SDV IVPUSH SCH ×2 (12:19→18:44)
[2019-11-07] MEDS: Rivaroxaban 10 MG Tab PO SCH (12:19)
[2019-11-07 13:00] LABS: HEMOGLOBIN A1C 6.3 % (4.50-6.20)
[2019-11-07] MEDS: Levalbuterol HCl 1.25 MG/3 ML Neb NEB SCH ×2 (14:00→20:57)
[2019-11-07] MEDS ORDERED: Metoprolol Tartrate 5 MG/5 ML SDV ONE (15:27)
[2019-11-07] MEDS: guaiFENesin/Dextromethorphan 100-10 MG/5 ML Soln 5 ML Cup PO PRN ×2 (15:29→20:23)
[2019-11-07] MEDS: Metoprolol Tartrate 5 MG/5 ML SDV IVPUSH PRN (15:35)
[2019-11-07] MEDS: Insulin Lispro 100 Units/ML 3 ML Vial SUBCUT PRN (18:39)
[2019-11-07] MEDS: BRIMONIDINE EYELF SCH ×2 (18:49→21:37)
[2019-11-07] MEDS: TIMOLOL EYE EYELF SCH ×2 (18:49→21:37)
[2019-11-08] MEDS: Insulin Lispro 100 Units/ML 3 ML Vial SUBCUT PRN ×5 (00:08→21:39)
[2019-11-08] MEDS: Metoprolol Tartrate 5 MG/5 ML SDV IVPUSH PRN ×3 (01:23→08:05)
[2019-11-08] MEDS: Sodium Chloride 0.9% 10 ML Syringe FLUSH PRN ×2 (01:28→20:13)
[2019-11-08] MEDS: Levalbuterol HCl 1.25 MG/3 ML Neb NEB SCH ×4 (02:53→21:19)
[2019-11-08] MEDS: methylPREDNISolone Sodium Succinate 40 MG/1 ML SDV IVPUSH SCH ×3 (03:35→20:13)
--- NOTE | 2019-11-08 06:41 | PCM.PN ---
- General Info Date of Service: 11/08/19 Admission Dx/Problem (Free Text): Admission Diagnosis/Problem Admission Diagnosis/Problem Pneumonia Subjective Update: No overnight issues. She feels much better this AM. He came off Cardizem gtt last night. His heart rate spiked up lamp wirer hours at rest and was given PRN IVP Lopressor. He has no complaints this morning. He is now on RA sating well. Functional Status: Reports: Pain Controlled, Tolerating Diet, Ambulating, Urinating - Review of Systems General: Denies: Fever, Fatigue, Malaise, Chills HEENT: Reports: No Symptoms Pulmonary: Reports: Cough. Denies: Shortness of Breath, Wheezing Cardiovascular: Denies: Chest Pain, Dyspnea on Exertion Gastrointestinal: Denies: Abdominal Pain, Nausea, Vomiting Genitourinary: Reports: No Symptoms Musculoskeletal: Reports: No Symptoms Skin: Denies: Cyanosis, Mottled, Pallor Neurological: Denies: Dizziness, Seizure, Syncope Psychiatric: Denies: Anxiety, Agitation - Patient Data Vitals - Most Recent: Last Vital Signs Temp 36.7 C 11/08/19 00:00 Pulse 146 H 11/08/19 05:24 Resp 24 H 11/08/19 04:00 BP 109/74 11/08/19 05:24 Pulse Ox 91 L 11/08/19 04:00 Weight - Most Recent: 67.132 kg I&O - Last 24 Hours: Intake & Output 11/07/19 11/07/19 11/08/19 14:59 22:59 06:59 Intake Total 120 1567 600 Output Total 300 500 Balance 120 1267 100 Lab Results Last 24 Hours: Laboratory Results - last 24 hr 11/05/19 11/07/19 11/07/19 Range/Units 12:05 10:45 12:35 POC Glucose 104 (70-105) mg/dL Hemoglobin A1c (4.50-6.20) % C-Reactive Protein 4.3 H* (<1.0) mg/dL Adenovirus (PCR) Not detected (Not Detected) B. pertussis DNA (PCR) Not detected (Not Detected) B.parapertussis DNA PCR Not detected (Not Detected) C. pneumoniae DNA (PCR) Not detected (Not Detected) Coronavirus (PCR) Not detected (Not Detected) Human Metapneumovir PCR Not detected (Not Detected) Influenza A (RT-PCR) Detected H (Not Detected) Influenza B (RT-PCR) Not detected (Not Detected) M. pneumoniae (PCR) Not detected (Not Detected) Parainfluen 1,2,3,4 PCR Not detected (Not Detected) RSV (PCR) Not detected (Not Detected) Entero/Rhino (PCR) Not detected (Not Detected) 11/07/19 11/07/19 11/08/19 Range/Units 12:39 18:33 00:06 POC Glucose 181 H 205 H (70-105) mg/dL Hemoglobin A1c 6.30 H (4.50-6.20) % C-Reactive Protein (<1.0) mg/dL Adenovirus (PCR) (Not Detected) B. pertussis DNA (PCR) (Not Detected) B.parapertussis DNA PCR (Not Detected) C. pneumoniae DNA (PCR) (Not Detected) Coronavirus (PCR) (Not Detected) Human Metapneumovir PCR (Not Detected) Influenza A (RT-PCR) (Not Detected) Influenza B (RT-PCR) (Not Detected) M. pneumoniae (PCR) (Not Detected) Parainfluen 1,2,3,4 PCR (Not Detected) RSV (PCR) (Not Detected) Entero/Rhino (PCR) (Not Detected) 11/08/19 11/08/19 Range/Units 05:11 06:15 POC Glucose 167 H (70-105) mg/dL Hemoglobin A1c (4.50-6.20) % C-Reactive Protein 2.9 H* (<1.0) mg/dL Adenovirus (PCR) (Not Detected) B. pertussis DNA (PCR) (Not Detected) B.parapertussis DNA PCR (Not Detected) C. pneumoniae DNA (PCR) (Not Detected) Coronavirus (PCR) (Not Detected) Human Metapneumovir PCR (Not Detected) Influenza A (RT-PCR) (Not Detected) Influenza B (RT-PCR) (Not Detected) M. pneumoniae (PCR) (Not Detected) Parainfluen 1,2,3,4 PCR (Not Detected) RSV (PCR) (Not Detected) Entero/Rhino (PCR) (Not Detected) Abdoul Results Last 24 Hours: Microbiology 11/06/19 13:15 Acid Fast Bacilli Smear - Final Back - Left Upper 11/06/19 16:15 Acid Fast Bacilli Smear - Final Back - Left Upper 11/05/19 08:25 Aerobic Blood Culture - Preliminary Blood - Venous - Lab Draw NO GROWTH AFTER 2 DAYS Anaerobic Blood Culture - Preliminary NO GROWTH AFTER 2 DAYS 11/05/19 08:10 Aerobic Blood Culture - Final Blood - Venous Streptococcus Pneumoniae Anaerobic Blood Culture - Preliminary NO GROWTH AFTER 2 DAYS 11/06/19 13:15 Gram Stain - Final Back - Left Upper 11/06/19 13:15 Gram Stain - Final Back Med Orders - Current: Current Medications Acetaminophen (Tylenol) 650 mg PO Q4H PRN PRN Reason: Pain (Mild 1-3)/fever Last Admin: 11/06/19 19:58 Dose: 650 mg Benzonatate (Tessalon Perles) 100 mg PO TID [facility] Last Admin: 11/07/19 20:20 Dose: 100 mg Dextrose/Water (Dextrose 50% In Water) 0 ml IV ASDIRECTED PRN PRN Reason: Hypoglycemia Diphenhydr/Magaldrate/Simeth/Lidoca (First-Mouthwash Blm Susp) 30 ml PO Q8H PRN PRN Reason: Other Last Admin: 11/06/19 19:55 Dose: 30 ml Guaifenesin (Mucinex) 600 mg PO BID KYLEE Last Admin: 11/07/19 20:20 Dose: 600 mg Guaifenesin/Phenylephrine HCl (Robitussin Dm) 10 ml PO Q4H PRN PRN Reason: Cough Last Admin: 11/07/19 20:23 Dose: 10 ml Levofloxacin/Dextrose 750 mg/ (Premix) 150 mls @ 100 mls/hr IV Q24H [facility] Last Admin: 11/07/19 12:19 Dose: 100 mls/hr Diltiazem HCl 125 mg/ Sodium (Chloride) 125 mls @ 5 mls/hr IV TITRATE [facility]; Protocol Last Titration: 11/07/19 21:37 Dose: 0 mg/hr, 0 mls/hr Insulin Human Lispro (Humalog) 0 unit SUBCUT Q6H PRN; Protocol PRN Reason: Hyperglycemia Last Admin: 11/08/19 06:16 Dose: 2 units Levalbuterol HCl (Xopenex) 1.25 mg NEB Q6HRRT [facility] Last Admin: 11/08/19 02:53 Dose: 1.25 mg Methylprednisolone Sodium Succinate (Solu-Medrol) 40 mg IVPUSH Q8H [facility] Last Admin: 11/08/19 03:35 Dose: 40 mg Metoprolol Tartrate (Lopressor) 5 mg IVPUSH Q4H PRN PRN Reason: Tachycardia Last Admin: 11/08/19 05:24 Dose: 5 mg Metoprolol Tartrate (Lopressor) 50 mg PO Q12H [facility] Last Admin: 11/07/19 20:20 Dose: 50 mg Miscellaneous Information (Remove Patch) 1 ea TRDERM DAILY [facility] Last Admin: 11/07/19 08:12 Dose: Not Given Nicotine (Habitrol) 21 mg TRDERM DAILY [facility] Last Admin: 11/07/19 08:11 Dose: Not Given Brimonidine/Timolol (Eye Drop Ptom) 1 drop EYELF BID [facility] Last Admin: 11/07/19 21:37 Dose: 1 drop Oseltamivir Phosphate (Tamiflu) 75 mg PO BID [facility] Stop: 11/11/19 21:01 Last Admin: 11/07/19 20:20 Dose: 75 mg Rivaroxaban (Xarelto) 20 mg PO DAILY [facility] Last Admin: 11/07/19 12:19 Dose: 20 mg Sodium Chloride (Saline Flush) 10 ml FLUSH ASDIRECTED PRN PRN Reason: Keep Vein Open Last Admin: 11/08/19 01:28 Dose: 10 ml Discontinued Medications Albuterol (Proventil Neb Soln) 2.5 mg NEB ONETIME ONE Stop: 11/05/19 09:31 Last Admin: 11/05/19 10:05 Dose: 2.5 mg Albuterol/Ipratropium (Duoneb 3.0-0.5 Mg/3 Ml) 3 ml NEB ONETIME ONE Stop: 11/05/19 07:56 Last Admin: 11/05/19 08:02 Dose: 3 ml Albuterol/Ipratropium (Duoneb 3.0-0.5 Mg/3 Ml) 3 ml NEB Q4HRRT [facility] Last Admin: 11/07/19 09:03 Dose: 3 ml Diltiazem HCl (Cardizem) 10 mg IVPUSH ONETIME ONE Stop: 11/06/19 20:37 Last Admin: 11/06/19 20:42 Dose: 10 mg Diphenhydr/Magaldrate/Simeth/Lidoca (First-Mouthwash Blm Susp) 30 ml PO Q8HR PRN PRN Reason: Other Enoxaparin Sodium (Lovenox) 30 mg SUBCUT Q24H [facility] Hydromorphone HCl (Dilaudid) 0.5 mg IVPUSH ONETIME ONE Stop: 11/05/19 08:53 Last Admin: 11/05/19 09:00 Dose: 0.5 mg Ceftriaxone Sodium 2 gm/ (Sodium Chloride) 100 mls @ 200 mls/hr IV ONETIME ONE Stop: 11/05/19 08:25 Last Admin: 11/05/19 08:34 Dose: 200 mls/hr Sodium Chloride (Normal Saline) 1,000 mls @ 125 mls/hr IV ASDIRECTED [facility] Last Admin: 11/06/19 09:10 Dose: 125 mls/hr Sodium Chloride (Normal Saline) 1,000 mls @ 75 mls/hr IV ASDIRECTED [facility] Lidocaine HCl (Xylocaine 1%) 0 ml INJECT ONETIME ONE Stop: 11/06/19 14:01 Last Admin: 11/06/19 16:24 Dose: 5 ml Methylprednisolone Sodium Succinate (Solu-Medrol) 125 mg IVPUSH ONETIME ONE Stop: 11/05/19 07:56 Last Admin: 11/05/19 08:19 Dose: 125 mg Metoprolol Tartrate (Lopressor) 25 mg PO Q12H [facility] Last Admin: 11/07/19 09:08 Dose: 25 mg Metoprolol Tartrate (Lopressor) Confirm Administered Dose 5 mg .ROUTE .STK-MED ONE Stop: 11/07/19 15:28 Last Admin: 11/07/19 15:35 Dose: Not Given - Exam Quality Assessment: No: Supplemental Oxygen General: Alert, Oriented, Cooperative, No Acute Distress HEENT: Pupils Equal, Pupils Reactive, EOMI, Mucous Membr. Moist/[place], Other ( Discoloration on posterior pharynx and tongue are improving. Could not appreciate exudate) Neck: Supple, Trachea Midline, No JVD Lungs: Normal Respiratory Effort, Wheezing (occasional on right posterior lung) Cardiovascular: Irregular Rhythm GI/Abdominal Exam: Normal Bowel Sounds, Soft, Non-Tender, No Organomegaly, No Distention, No Abnormal Bruit (Male) Exam: Deferred Back Exam: Normal Inspection, Full Range of Motion Extremities: Normal Inspection, Normal Range of Motion, Non-Tender, No Pedal Edema, Normal Capillary Refill Peripheral Pulses: 2+: Posterior Tibial (L), Posterior Tibial (R), Dorsalis Pedis (L), Dorsalis Pedis (R) Skin: Warm, Dry, Intact Neurological: No New Focal Deficit Psy/Mental Status: Alert, Normal Affect, Normal Mood Sepsis Event Note - Evaluation Sepsis Screening Result: Severe Sepsis Risk - Focused Exam Vital Signs: Vital Signs Temp Pulse Resp BP BP Pulse Ox Pulse Ox 11/08/19 05:24 146 H 109/74 11/08/19 04:00 24 H 109/92 H 91 L 11/08/19 02:54 11/08/19 01:23 120 H 111/73 93 L 11/08/19 00:00 36.7 C 22 H 113/67 94 L 11/07/19 23:00 92 L 11/07/19 22:00 22 H 97/63 95 11/07/19 21:50 11/07/19 21:01 97 11/07/19 21:00 24 H 110/65 96 11/07/19 20:57 97 11/07/19 20:20 129 H 110/64 11/07/19 20:15 96 11/07/19 20:00 37.0 C 24 H 111/61 11/07/19 19:01 94 L 11/07/19 19:00 115/87 95 11/07/19 18:59 94 L Pulse Ox 11/08/19 05:24 11/08/19 04:00 11/08/19 02:54 94 L 11/08/19 01:23 11/08/19 00:00 11/07/19 23:00 11/07/19 22:00 11/07/19 21:50 96 11/07/19 21:01 11/07/19 21:00 11/07/19 20:57 11/07/19 20:20 11/07/19 20:15 11/07/19 20:00 11/07/19 19:01 11/07/19 19:00 11/07/19 18:59 Date Exam was Performed: 11/08/19 Time Exam was Performed: 19:18 - Problem List Review Problem List Initiated/Reviewed/Updated: Yes - My Orders Last 24 Hours: My Active Orders 11/07/19 08:48 Dextromethorphan/guaiFENesin [Robitussin DM] 10 ml PO Q4H PRN 11/07/19 09:00 Oseltamivir [Tamiflu] 75 mg PO BID 11/07/19 09:15 EKG Documentation Completion [RC] ASDIRECTED EKG 12 Lead [EK] Routine 11/07/19 11:15 Rivaroxaban [Xarelto] 20 mg PO DAILY 11/07/19 11:22 Blood Glucose Check, Bedside [RC] Q6H Dextrose 50% in Water See Dose Instructions IV ASDIRECTED PRN Insulin Lispro [HumaLOG] See Protocol SUBCUT Q6H PRN 11/07/19 11:30 methylPREDNISolone Sod Succ [Solu-MEDROL] 40 mg IVPUSH Q8H 11/07/19 11:55 PT Evaluation and Treatment [CONS] Routine 11/07/19 15:00 Levalbuterol HCl [Xopenex] 1.25 mg NEB Q6HRRT 11/07/19 15:30 Metoprolol Tartrate [Lopressor] 5 mg IVPUSH Q4H PRN 11/07/19 15:51 Wound Care [RC] DAILY 11/07/19 21:00 Brimonidine/Timolol 1 drop EYELF BID Metoprolol Tartrate [Lopressor] 50 mg PO Q12H 11/09/19 06:00 CRP [C-REACTIVE PROTEIN] [CHEM] DAILY 11/10/19 06:00 CRP [C-REACTIVE PROTEIN] [CHEM] DAILY - Plan Plan:: Community acquired pneumonia/Pneumonia involving right lung, worse on right base 2/2 Strep pneumonia S/p Hypoxemia Active smoker S/p Hyponatremia Influenza A infection RAD/Probable COPD Exacerbation Bacteremia-positive on bottle aerobic 2/2 Strep pneumonia Worsening cough for 2 weeks O2 sat 84% on RA on admission with PaO2 59-->he is now on RA sating anywhere bet 93-97% No sepsis on admission Mycoplasma and flu swab negative Rapid HIV negative Strep pneumonia organism on sputum and blood culture sensitive to Levaquin PLAN - Continue Xopenex Q6H, Solumedrol 40 m g IVP Q8H and Tamiflu 75 mg po BID for 10 days - Scheduled Guaifenesin and Tessalon Perles; PRN Guaifenesin/Dextromethorphan - Procalcitonin, pending - S. pneumoniae antigen-negative - Respiratory panel PCR-Influenza A positive - Continue on Levaquin - Blood cultured in ED- positive on aerobic bottle - Legionella serology-negative - IS as directed - Repeat blood cultures Atrial Fibrillation with RVR, HR as high as 130s New onset from acute illness Moved to the unit overnight Cardizem gtt improved with HR in the 70s-80s Came off gtt last night but lamp wirer hrs he went back RVR Tried IVP PRN Lopressor unresponsive Consider Amiodarone gtt TSH normal but FT4 is 1.55 (slightly elevated than normal) Metoprolol was increased to 50 mg po BID last night but now unresponsive However her FT4 is slightly elevated, he might benefit with beta blockade If no response we will consider cardiology tele-consult 2D done yesterday, awaiting final report Hyperglycemia/ Pre-Diabetes BS of 118--> still in the 200s Carries not hx/o DM of Glucose Intolerance Screen for diabetes: A1C 6.3 On IV steroid Accu-check Q6H with ISS- will change to high dose level Consider low dose Glucotrol 2.5 mg po BID Abscess S/p ID, Stable Localized to his back PLAN - Consult PT for wound care Oral thrush, Continues to Improve Diagnosed as an outpatient 2 weeks ago and has been taking treatment as indicated Still having severe pain for which his oral intake has significantly decreased There is no obvious leukoplakia Rapid HIV negative PLAN - Scheduled magic mouth wash - Confirmatory HIV test is pending Thrombocytopenia, improving No signs of clumping on smear Albumin of 87 --> 116--> 251?? Likely 2/2 Chronic ETOH Use PLAN - Monitor level Hypoalbuminemia Patient does appear to have muscle wasting Albumin of 2.6 PLAN - Prealbumin, pending - Dietary consult Current everyday smoker Smokes 1ppd for 45y PLAN - Nicotine patch; patient refused - Counseled on smoking cessation Hypomagnesemia Mg level of 1.7 PLAN Replete and monitor Subclinical Hyperthyroidism TSH is normal but FT4 is 1.55 (above upper limits of normal) No treatment needed at this time PROPHYLAXIS DVT- Lovenox GI- not indicated CODE STATUS: FULL CODE DISPOSITION: Patient has bacteremia and pneumonia with the same organism on cultures. He is looking much better clinically today. He is off supplemental O2 but heart rate went back to RVR lamp wirer hrs. We will consider Amiodarone gtt along with Cardizem oral dose. May consider re-starting beta blockade since he has subclinical hyperthyroidism. Cardiology consult if no response to above treatment.
[2019-11-08] MEDS ORDERED: Diltiazem 240 MG Cap.ER PO SCH ×2 (06:59→09:00)
[2019-11-08] MEDS ORDERED: Magnesium Sulfate/Water 2 GM in Premix Bag 1 BAG IV ONE (08:30)
[2019-11-08] MEDS ORDERED: Diltiazem 50 MG/10 ML SDV IVPUSH ONE (08:34)
[2019-11-08] MEDS: guaiFENesin 600 MG Tab.ER PO SCH ×2 (08:56→20:14)
[2019-11-08] MEDS: Nicotine 21 MG/24 Hr Patch TRDERM SCH (08:56)
[2019-11-08] MEDS: Benzonatate 100 MG Cap PO SCH ×3 (08:57→20:14)
[2019-11-08] MEDS: Oseltamivir 75 MG Cap PO SCH ×2 (08:58→20:14)
[2019-11-08] MEDS: Rivaroxaban 10 MG Tab PO SCH (08:58)
[2019-11-08] MEDS ORDERED: Metoprolol Tartrate 25 MG Tab PO SCH (09:00)
[2019-11-08] MEDS: TIMOLOL EYE EYELF SCH ×2 (09:33→20:24)
[2019-11-08] MEDS: BRIMONIDINE EYELF SCH ×2 (09:33→20:24)
[2019-11-08] MEDS: Remove Patch*NICOTINE TRDERM SCH (09:33)
[2019-11-08] MEDS: Levofloxacin/Dextrose 5%-Water 750 MG in Premix Bag 1 BAG IV SCH (12:07)
[2019-11-08] MEDS: Diphenhydramine/Lidocaine/MagAl/Simethicone 119 ML Bottle PO PRN (14:37)
[2019-11-08] MEDS ORDERED: Diltiazem 50 MG/10 ML SDV IVPUSH PRN (19:00)
[2019-11-08] MEDS ORDERED: Metoprolol Tartrate 50 MG Tab PO SCH (19:15)
[2019-11-08] MEDS: guaiFENesin/Dextromethorphan 100-10 MG/5 ML Soln 5 ML Cup PO PRN (20:13)
[2019-11-08] MEDS: glipiZIDE 5 MG Tab PO SCH (20:14)
[2019-11-08] MEDS: Temazepam 30 MG Cap PO PRN (21:42)
[2019-11-09] MEDS: guaiFENesin/Dextromethorphan 100-10 MG/5 ML Soln 5 ML Cup PO PRN ×5 (00:27→22:26)
[2019-11-09] MEDS: methylPREDNISolone Sodium Succinate 40 MG/1 ML SDV IVPUSH SCH ×3 (03:00→18:37)
[2019-11-09] MEDS: Levalbuterol HCl 1.25 MG/3 ML Neb NEB SCH ×4 (03:31→21:09)
[2019-11-09] MEDS: glipiZIDE 5 MG Tab PO SCH ×2 (06:39→16:57)
[2019-11-09] MEDS: Sodium Chloride 0.9% 10 ML Syringe FLUSH PRN (06:44)
[2019-11-09] MEDS: Insulin Lispro 100 Units/ML 3 ML Vial SUBCUT PRN ×4 (06:46→20:24)
--- NOTE | 2019-11-09 07:37 | PCM.PN ---
- General Info Date of Service: 11/09/19 Admission Dx/Problem (Free Text): Admission Diagnosis/Problem Admission Diagnosis/Problem Pneumonia Subjective Update: No overnight issues. He states he slept like a baby and feeling not bad at all. No new complaints this AM. Functional Status: Reports: Pain Controlled, Tolerating Diet, Ambulating, Urinating. Denies: New Symptoms - Review of Systems General: Reports: Fatigue, Malaise. Denies: Fever, Chills HEENT: Reports: No Symptoms Pulmonary: Reports: Pleuritic Chest Pain, Cough, Sputum. Denies: Shortness of Breath, Hemoptysis, Wheezing Cardiovascular: Denies: Chest Pain, Palpitations, Dyspnea on Exertion, Lightheadedness Gastrointestinal: Denies: Abdominal Pain, Nausea, Vomiting Genitourinary: Reports: No Symptoms Musculoskeletal: Reports: No Symptoms Skin: Denies: Cyanosis, Mottled, Diaphoresis, Pruritis, Rash Neurological: Denies: Confusion, Dizziness, Numbness, Pre-Existing Deficit, Syncope, Weakness, Gait Disturbance Psychiatric: Denies: Anxiety, Agitation, Hallucinations - Patient Data Vitals - Most Recent: Last Vital Signs Temp 36.6 C 11/09/19 04:00 Pulse 139 H 11/08/19 20:13 Resp 20 11/09/19 07:00 BP 114/81 11/09/19 06:00 Pulse Ox 93 L 11/09/19 07:00 Weight - Most Recent: 66.996 kg I&O - Last 24 Hours: Intake & Output 11/08/19 11/09/19 11/09/19 22:59 06:59 14:59 Intake Total 1107 383 Output Total 200 Balance 907 383 Imaging Impressions - Last 24 Hours: CXR report read as significantly improved appearance of the chest. Lab Results Last 24 Hours: Laboratory Results - last 24 hr 11/05/19 11/08/19 11/08/19 Range/Units 12:05 05:11 05:11 WBC (4.23-9.07) K/mm3 RBC (4.63-6.08) M/mm3 Hgb (13.7-17.5) gm/dl Hct (40.1-51.0) % MCV (79.0-92.2) fl MCH (25.7-32.2) pg MCHC (32.2-35.5) g/dl RDW Std Deviation (35.1-43.9) fL Plt Count (163-337) K/mm3 MPV (9.4-12.3) fl Neut % (Auto) (34.0-67.9) % Lymph % (Auto) (21.8-53.1) % [place] % (Auto) (5.3-12.2) % Eos % (Auto) (0.8-7.0) Baso % (Auto) (0.1-1.2) % Neut # (Auto) (1.78-5.38) K/mm3 Lymph # (Auto) (1.32-3.57) K/mm3 [place] # (Auto) (0.30-0.82) K/mm3 Eos # (Auto) (0.04-0.54) K/mm3 Baso # (Auto) (0.01-0.08) K/mm3 Manual Slide Review Sodium 138 (136-145) mEq/L Potassium 4.5 (3.5-5.1) mEq/L Chloride 104 (98-107) mEq/L Carbon Dioxide 21 (21-32) mEq/L Anion Gap 17.5 H (5-15) BUN 21 H (7-18) mg/dL Creatinine 0.6 L (0.7-1.3) mg/dL Est Cr Clr Drug Dosing 130.53 mL/min Estimated GFR (MDRD) > 60 (>60) mL/min BUN/Creatinine Ratio 35.0 H (14-18) Glucose 170 H (74-106) mg/dL POC Glucose (70-105) mg/dL Calcium 8.5 (8.5-10.1) mg/dL Magnesium 1.7 L (1.8-2.4) mg/dl C-Reactive Protein (<1.0) mg/dL Free T4 1.55 H (0.76-1.46) ng/dL TSH 3rd Generation 2.774 (0.358-3.74) uIU/mL Influenza A (RT-PCR) Detected H (Not Detected) 11/08/19 11/08/19 11/08/19 Range/Units 12:02 18:22 21:33 WBC (4.23-9.07) K/mm3 RBC (4.63-6.08) M/mm3 Hgb (13.7-17.5) gm/dl Hct (40.1-51.0) % MCV (79.0-92.2) fl MCH (25.7-32.2) pg MCHC (32.2-35.5) g/dl RDW Std Deviation (35.1-43.9) fL Plt Count (163-337) K/mm3 MPV (9.4-12.3) fl Neut % (Auto) (34.0-67.9) % Lymph % (Auto) (21.8-53.1) % [place] % (Auto) (5.3-12.2) % Eos % (Auto) (0.8-7.0) Baso % (Auto) (0.1-1.2) % Neut # (Auto) (1.78-5.38) K/mm3 Lymph # (Auto) (1.32-3.57) K/mm3 [place] # (Auto) (0.30-0.82) K/mm3 Eos # (Auto) (0.04-0.54) K/mm3 Baso # (Auto) (0.01-0.08) K/mm3 Manual Slide Review Sodium (136-145) mEq/L Potassium (3.5-5.1) mEq/L Chloride (98-107) mEq/L Carbon Dioxide (21-32) mEq/L Anion Gap (5-15) BUN (7-18) mg/dL Creatinine (0.7-1.3) mg/dL Est Cr Clr Drug Dosing mL/min Estimated GFR (MDRD) (>60) mL/min BUN/Creatinine Ratio (14-18) Glucose (74-106) mg/dL POC Glucose 209 H 219 H 264 H (70-105) mg/dL Calcium (8.5-10.1) mg/dL Magnesium (1.8-2.4) mg/dl C-Reactive Protein (<1.0) mg/dL Free T4 (0.76-1.46) ng/dL TSH 3rd Generation (0.358-3.74) uIU/mL Influenza A (RT-PCR) (Not Detected) 11/09/19 11/09/19 11/09/19 Range/Units 04:45 04:45 04:45 WBC 8.27 (4.23-9.07) K/mm3 RBC 4.66 (4.63-6.08) M/mm3 Hgb 14.0 (13.7-17.5) gm/dl Hct 41.1 (40.1-51.0) % MCV 88.2 (79.0-92.2) fl MCH 30.0 (25.7-32.2) pg MCHC 34.1 (32.2-35.5) g/dl RDW Std Deviation 45.5 H (35.1-43.9) fL Plt Count 347 H D (163-337) K/mm3 MPV 10.1 (9.4-12.3) fl Neut % (Auto) 81.5 H (34.0-67.9) % Lymph % (Auto) 9.7 L (21.8-53.1) % [place] % (Auto) 7.9 (5.3-12.2) % Eos % (Auto) 0 L (0.8-7.0) Baso % (Auto) 0.2 (0.1-1.2) % Neut # (Auto) 6.74 H (1.78-5.38) K/mm3 Lymph # (Auto) 0.80 L (1.32-3.57) K/mm3 [place] # (Auto) 0.65 (0.30-0.82) K/mm3 Eos # (Auto) 0.00 L (0.04-0.54) K/mm3 Baso # (Auto) 0.02 (0.01-0.08) K/mm3 Manual Slide Review Abnormal smear Sodium 139 (136-145) mEq/L Potassium 4.3 (3.5-5.1) mEq/L Chloride 104 (98-107) mEq/L Carbon Dioxide 24 (21-32) mEq/L Anion Gap 15.3 H (5-15) BUN 22 H (7-18) mg/dL Creatinine 0.7 (0.7-1.3) mg/dL Est Cr Clr Drug Dosing 111.66 mL/min Estimated GFR (MDRD) > 60 (>60) mL/min BUN/Creatinine Ratio 31.4 H (14-18) Glucose 185 H (74-106) mg/dL POC Glucose (70-105) mg/dL Calcium 8.5 (8.5-10.1) mg/dL Magnesium 1.9 (1.8-2.4) mg/dl C-Reactive Protein 1.6 H* (<1.0) mg/dL Free T4 (0.76-1.46) ng/dL TSH 3rd Generation (0.358-3.74) uIU/mL Influenza A (RT-PCR) (Not Detected) 11/09/19 Range/Units 06:11 WBC (4.23-9.07) K/mm3 RBC (4.63-6.08) M/mm3 Hgb (13.7-17.5) gm/dl Hct (40.1-51.0) % MCV (79.0-92.2) fl MCH (25.7-32.2) pg MCHC (32.2-35.5) g/dl RDW Std Deviation (35.1-43.9) fL Plt Count (163-337) K/mm3 MPV (9.4-12.3) fl Neut % (Auto) (34.0-67.9) % Lymph % (Auto) (21.8-53.1) % [place] % (Auto) (5.3-12.2) % Eos % (Auto) (0.8-7.0) Baso % (Auto) (0.1-1.2) % Neut # (Auto) (1.78-5.38) K/mm3 Lymph # (Auto) (1.32-3.57) K/mm3 [place] # (Auto) (0.30-0.82) K/mm3 Eos # (Auto) (0.04-0.54) K/mm3 Baso # (Auto) (0.01-0.08) K/mm3 Manual Slide Review Sodium (136-145) mEq/L Potassium (3.5-5.1) mEq/L Chloride (98-107) mEq/L Carbon Dioxide (21-32) mEq/L Anion Gap (5-15) BUN (7-18) mg/dL Creatinine (0.7-1.3) mg/dL Est Cr Clr Drug Dosing mL/min Estimated GFR (MDRD) (>60) mL/min BUN/Creatinine Ratio (14-18) Glucose (74-106) mg/dL POC Glucose 233 H (70-105) mg/dL Calcium (8.5-10.1) mg/dL Magnesium (1.8-2.4) mg/dl C-Reactive Protein (<1.0) mg/dL Free T4 (0.76-1.46) ng/dL TSH 3rd Generation (0.358-3.74) uIU/mL Influenza A (RT-PCR) (Not Detected) Abdoul Results Last 24 Hours: Microbiology 11/06/19 13:15 Gram Stain - Final Back - Left Upper Anaerobic Culture - Preliminary 11/06/19 13:15 Gram Stain - Final Back Anaerobic Culture - Preliminary 11/05/19 13:45 Gram Stain - Final Sputum - Expectorated Sputum Culture - Final Streptococcus Pneumoniae 11/05/19 08:25 Aerobic Blood Culture - Preliminary Blood - Venous - Lab Draw NO GROWTH AFTER 3 DAYS Anaerobic Blood Culture - Preliminary NO GROWTH AFTER 3 DAYS 11/05/19 08:10 Aerobic Blood Culture - Final Blood - Venous Streptococcus Pneumoniae Anaerobic Blood Culture - Preliminary NO GROWTH AFTER 3 DAYS Med Orders - Current: Current Medications Acetaminophen (Tylenol) 650 mg PO Q4H PRN PRN Reason: Pain (Mild 1-3)/fever Last Admin: 11/06/19 19:58 Dose: 650 mg Benzonatate (Tessalon Perles) 100 mg PO TID [facility] Last Admin: 11/08/19 20:14 Dose: 100 mg Dextrose/Water (Dextrose 50% In Water) 0 ml IV ASDIRECTED PRN PRN Reason: Hypoglycemia Diltiazem HCl (Cardizem Cd) 120 mg PO DAILY [facility] Diltiazem HCl (Cardizem Cd) 180 mg PO DAILY [facility] Diltiazem HCl (Cardizem) 10 mg IVPUSH Q4HR PRN PRN Reason: Arrhythmia Last Admin: 11/09/19 06:40 Dose: 10 mg Diphenhydr/Magaldrate/Simeth/Lidoca (First-Mouthwash Blm Susp) 30 ml PO Q8H PRN PRN Reason: Other Last Admin: 11/08/19 14:37 Dose: 30 ml Glipizide (Glucotrol) 2.5 mg PO BIDMEALS [facility] Last Admin: 11/09/19 06:39 Dose: 2.5 mg Guaifenesin (Mucinex) 600 mg PO BID [facility] Last Admin: 11/08/19 20:14 Dose: 600 mg Guaifenesin/Phenylephrine HCl (Robitussin Dm) 10 ml PO Q4H PRN PRN Reason: Cough Last Admin: 11/09/19 00:27 Dose: 10 ml Levofloxacin/Dextrose 750 mg/ (Premix) 150 mls @ 100 mls/hr IV Q24H [facility] Last Admin: 11/08/19 12:07 Dose: 100 mls/hr Amiodarone HCl/Dextrose (Nexterone In Dextrose 360 Mg/200 Ml) 360 mg in 200 mls @ 16.7 mls/hr IV ASDIRECTED [facility]; Protocol Stop: 11/09/19 09:29 Last Admin: 11/09/19 02:56 Dose: 16.7 mls/hr Amiodarone HCl/Dextrose (Nexterone In Dextrose 360 Mg/200 Ml) 360 mg in 200 mls @ 16.7 mls/hr IV ASDIRECTED [facility]; Protocol Stop: 11/10/19 09:31 Insulin Human Lispro (Humalog) 0 unit SUBCUT Q6H PRN; Protocol PRN Reason: Hyperglycemia Last Admin: 11/09/19 06:46 Dose: 6 units Levalbuterol HCl (Xopenex) 1.25 mg NEB Q6HRRT [facility] Last Admin: 11/09/19 03:31 Dose: 1.25 mg Methylprednisolone Sodium Succinate (Solu-Medrol) 40 mg IVPUSH Q8H [facility] Last Admin: 11/09/19 03:00 Dose: 40 mg Metoprolol Tartrate (Lopressor) 50 mg PO QID [facility] Miscellaneous Information (Remove Patch) 1 ea TRDERM DAILY [facility] Last Admin: 11/08/19 09:33 Dose: Not Given Nicotine (Habitrol) 21 mg TRDERM DAILY [facility] Last Admin: 11/08/19 08:56 Dose: Not Given Brimonidine/Timolol (Eye Drop Ptom) 1 drop EYELF BID [facility] Last Admin: 11/08/19 20:24 Dose: 1 drop Oseltamivir Phosphate (Tamiflu) 75 mg PO BID [facility] Stop: 11/11/19 21:01 Last Admin: 11/08/19 20:14 Dose: 75 mg Rivaroxaban (Xarelto) 20 mg PO DAILY [facility] Last Admin: 11/08/19 08:58 Dose: 20 mg Sodium Chloride (Saline Flush) 10 ml FLUSH ASDIRECTED PRN PRN Reason: Keep Vein Open Last Admin: 11/09/19 06:44 Dose: 10 ml Temazepam (Restoril) 30 mg PO BEDTIME PRN PRN Reason: Insomnia Last Admin: 11/08/19 21:42 Dose: 30 mg Discontinued Medications Albuterol (Proventil Neb Soln) 2.5 mg NEB ONETIME ONE Stop: 11/05/19 09:31 Last Admin: 11/05/19 10:05 Dose: 2.5 mg Albuterol/Ipratropium (Duoneb 3.0-0.5 Mg/3 Ml) 3 ml NEB ONETIME ONE Stop: 11/05/19 07:56 Last Admin: 11/05/19 08:02 Dose: 3 ml Albuterol/Ipratropium (Duoneb 3.0-0.5 Mg/3 Ml) 3 ml NEB Q4HRRT KYLEE Last Admin: 11/07/19 09:03 Dose: 3 ml Diltiazem HCl (Cardizem) 10 mg IVPUSH ONETIME ONE Stop: 11/06/19 20:37 Last Admin: 11/06/19 20:42 Dose: 10 mg Diltiazem HCl (Dilacor Xr) 240 mg PO DAILY KYLEE Diltiazem HCl (Dilacor Xr) 240 mg PO DAILY [facility] Last Admin: 11/08/19 07:22 Dose: 240 mg Diltiazem HCl (Cardizem) 10 mg IVPUSH ONETIME ONE Stop: 11/08/19 08:35 Last Admin: 11/08/19 08:45 Dose: 10 mg Diphenhydr/Magaldrate/Simeth/Lidoca (First-Mouthwash Blm Susp) 30 ml PO Q8HR PRN PRN Reason: Other Enoxaparin Sodium (Lovenox) 30 mg SUBCUT Q24H [facility] Hydromorphone HCl (Dilaudid) 0.5 mg IVPUSH ONETIME ONE Stop: 11/05/19 08:53 Last Admin: 11/05/19 09:00 Dose: 0.5 mg Ceftriaxone Sodium 2 gm/ (Sodium Chloride) 100 mls @ 200 mls/hr IV ONETIME ONE Stop: 11/05/19 08:25 Last Admin: 11/05/19 08:34 Dose: 200 mls/hr Sodium Chloride (Normal Saline) 1,000 mls @ 125 mls/hr IV ASDIRECTED KYLEE Last Admin: 11/06/19 09:10 Dose: 125 mls/hr Sodium Chloride (Normal Saline) 1,000 mls @ 75 mls/hr IV ASDIRECTED KYLEE Diltiazem HCl 125 mg/ Sodium (Chloride) 125 mls @ 5 mls/hr IV TITRATE KYLEE; Protocol Last Titration: 11/07/19 21:37 Dose: 0 mg/hr, 0 mls/hr Magnesium Sulfate 2 gm/ Premix 50 mls @ 25 mls/hr IV ONETIME ONE Stop: 11/08/19 10:29 Last Admin: 11/08/19 09:28 Dose: 25 mls/hr Amiodarone HCl/Dextrose (Nexterone In Dextrose 150 Mg/100 Ml) 100 mls @ 600 mls /hr IV BOLUS ONE; Protocol Stop: 11/08/19 08:44 Last Admin: 11/08/19 09:05 Dose: 600 mls/hr Amiodarone HCl/Dextrose (Nexterone In Dextrose 360 Mg/200 Ml) 360 mg in 200 mls @ 33.333 mls/hr IV ASDIRECTED KYLEE; Protocol Stop: 11/08/19 15:29 Last Admin: 11/08/19 09:22 Dose: 33.333 mls/hr Lidocaine HCl (Xylocaine 1%) 0 ml INJECT ONETIME ONE Stop: 11/06/19 14:01 Last Admin: 11/06/19 16:24 Dose: 5 ml Methylprednisolone Sodium Succinate (Solu-Medrol) 125 mg IVPUSH ONETIME ONE Stop: 11/05/19 07:56 Last Admin: 11/05/19 08:19 Dose: 125 mg Metoprolol Tartrate (Lopressor) 25 mg PO Q12H KYLEE Last Admin: 11/07/19 09:08 Dose: 25 mg Metoprolol Tartrate (Lopressor) Confirm Administered Dose 5 mg .ROUTE .STK-MED ONE Stop: 11/07/19 15:28 Last Admin: 11/07/19 15:35 Dose: Not Given Metoprolol Tartrate (Lopressor) 5 mg IVPUSH Q4H PRN PRN Reason: Tachycardia Last Admin: 11/08/19 08:05 Dose: 5 mg Metoprolol Tartrate (Lopressor) 50 mg PO Q12H KYLEE Last Admin: 11/07/19 20:20 Dose: 50 mg Metoprolol Tartrate (Lopressor) 75 mg PO Q12H [facility] Metoprolol Tartrate (Lopressor) 50 mg PO BID [facility] Last Admin: 11/08/19 20:13 Dose: 50 mg Metoprolol Tartrate (Lopressor) 75 mg PO BID KYLEE - Exam Quality Assessment: Supplemental Oxygen General: Alert, Oriented, Cooperative, No Acute Distress HEENT: Pupils Equal, Pupils Reactive, EOMI, Mucous Membr. Moist/[place] Neck: Supple Lungs: Clear to Auscultation, Normal Respiratory Effort Cardiovascular: No Murmurs, Irregular Rhythm GI/Abdominal Exam: Normal Bowel Sounds, Soft, Non-Tender, No Organomegaly, No Distention, No Abnormal Bruit, No Mass (Male) Exam: Deferred Back Exam: Normal Inspection, Decreased Range of Motion Extremities: Normal Inspection, Normal Range of Motion, Non-Tender, No Pedal Edema, Normal Capillary Refill Peripheral Pulses: 2+: Posterior Tibial (L), Posterior Tibial (R), Dorsalis Pedis (L), Dorsalis Pedis (R) Skin: Warm, Dry, Intact Neurological: No New Focal Deficit Psy/Mental Status: Alert, Normal Affect, Normal Mood Sepsis Event Note - Evaluation Sepsis Screening Result: Severe Sepsis Risk - Focused Exam Vital Signs: Vital Signs Temp Pulse Resp BP BP Pulse Ox Pulse Ox 11/09/19 07:00 20 93 L 11/09/19 06:00 20 114/81 94 L 11/09/19 05:00 18 112/80 94 L 11/09/19 04:30 19 94 L 11/09/19 04:00 36.6 C 16 111/84 93 L 11/09/19 03:33 95 11/09/19 03:30 20 97 11/09/19 03:00 20 99/86 93 L 11/09/19 02:30 21 H 96 11/09/19 02:00 22 H 107/77 95 11/09/19 01:30 94 L 11/09/19 01:00 102/88 11/09/19 00:30 25 H 96 11/09/19 00:00 36.6 C 24 H 98/86 96 11/08/19 23:30 21 H 96 11/08/19 23:00 20 96/62 94 L 11/08/19 22:30 21 H 94 L 11/08/19 22:00 21 H 112/76 94 L 11/08/19 21:30 21 H 96 11/08/19 21:19 97 11/08/19 21:00 23 H 104/74 96 11/08/19 20:30 23 H 96 11/08/19 20:13 139 H 119/73 11/08/19 20:00 36.4 C 23 H 111/77 93 L 11/08/19 19:45 24 H 114/61 93 L Date Exam was Performed: 11/09/19 Time Exam was Performed: 17:24 - Problem List Review Problem List Initiated/Reviewed/Updated: Yes - My Orders Last 24 Hours: My Active Orders 11/08/19 08:09 Blood Culture x2 Reflex Set [OM.PC] Stat 11/08/19 08:35 CULTURE BLOOD [BC] Stat 11/08/19 08:47 CULTURE BLOOD [BC] Stat 11/08/19 15:30 Amiodarone In Dextrose,Iso-Osm [Nexterone in Dextrose 360 MG/200 ML] 360 mg in 200 ml IV ASDIRECTED 11/08/19 19:00 Diltiazem [Cardizem] 10 mg IVPUSH Q4HR PRN 11/08/19 21:00 Temazepam [Restoril] 30 mg PO BEDTIME PRN glipiZIDE [Glucotrol] 2.5 mg PO BIDMEALS 11/09/19 09:00 Diltiazem [Cardizem CD] 120 mg PO DAILY Diltiazem [Cardizem CD] 180 mg PO DAILY Metoprolol Tartrate [Lopressor] 50 mg PO QID 11/09/19 09:30 Amiodarone In Dextrose,Iso-Osm [Nexterone in Dextrose 360 MG/200 ML] 360 mg in 200 ml IV ASDIRECTED 11/10/19 05:00 BMP [BASIC METABOLIC PANEL,BMP] [CHEM] DAILY CBC WITH AUTO DIFF [HEME] DAILY MG [MAGNESIUM] [CHEM] DAILY 11/10/19 06:00 CRP [C-REACTIVE PROTEIN] [CHEM] DAILY 11/11/19 05:00 BMP [BASIC METABOLIC PANEL,BMP] [CHEM] DAILY CBC WITH AUTO DIFF [HEME] DAILY MG [MAGNESIUM] [CHEM] DAILY 11/12/19 05:00 BMP [BASIC METABOLIC PANEL,BMP] [CHEM] DAILY CBC WITH AUTO DIFF [HEME] DAILY MG [MAGNESIUM] [CHEM] DAILY 11/13/19 05:00 BMP [BASIC METABOLIC PANEL,BMP] [CHEM] DAILY MG [MAGNESIUM] [CHEM] DAILY - Plan Plan:: Community acquired pneumonia/Pneumonia involving right lung, worse on right base 2/2 Strep pneumonia S/p Hypoxemia Active smoker S/p Hyponatremia Influenza A infection RAD/Probable COPD Exacerbation Bacteremia-positive on bottle aerobic 2/2 Strep pneumonia Worsening cough for 2 weeks O2 sat 84% on RA on admission with PaO2 59-->he is now on RA sating anywhere bet 93-97% No sepsis on admission Mycoplasma and flu swab negative Rapid HIV negative Strep pneumonia organism on sputum and blood culture sensitive to Levaquin Repeat CXR this AM read as significantly improved lungs PLAN - Continue Xopenex Q6H, Solumedrol 40 m g IVP Q8H and Tamiflu 75 mg po BID for 10 days - Scheduled Guaifenesin and Tessalon Perles; PRN Guaifenesin/Dextromethorphan - Procalcitonin, ? pending - S. pneumoniae antigen-negative - Respiratory panel PCR-Influenza A positive - Continue on Levaquin - Blood cultured in ED- positive on aerobic bottle - Legionella serology-negative - IS as directed - Repeat blood cultures Atrial Fibrillation with RVR, HR as high as 130s New onset from acute illness Moved to the unit overnight Amiodarone gtt TSH normal but FT4 is 1.55 (slightly elevated than normal) Metoprolol increased to 100 mg po BID and Cardizem 60 IR Q6H However her FT4 is slightly elevated, he might benefit with beta blockade Consider cardiology tele-consult in AM Hyperglycemia/Pre-Diabetes, Uncontrolled BS of 118--> still in the 200s Carries not hx/o DM of Glucose Intolerance Screen for diabetes: A1C 6.3 On IV steroid Accu-check Q6H with High Intensity ISS Glucotrol now to 5 mg po BID Abscess S/p ID, Stable Localized to his back PLAN - Consult PT for wound care Oral thrush, Resolved Diagnosed as an outpatient 2 weeks ago and has been taking treatment as indicated Still having severe pain for which his oral intake has significantly decreased There is no obvious leukoplakia Rapid HIV negative PLAN - Scheduled magic mouth wash - Confirmatory HIV test is pending Thrombocytopenia, improving No signs of clumping on smear Albumin of 87 --> 116--> 251?? Likely 2/2 Chronic ETOH Use PLAN - Monitor level Hypoalbuminemia Patient does appear to have muscle wasting Albumin of 2.6 PLAN - Prealbumin, pending - Dietary consult Current everyday smoker Smokes 1ppd for 45y PLAN - Nicotine patch; patient refused - Counseled on smoking cessation Hypomagnesemia Mg level of 1.7 PLAN Replete and monitor Subclinical Hyperthyroidism TSH is normal but FT4 is 1.55 (above upper limits of normal) No treatment needed at this time Hx/o Chronic ETOH Use States he drinks 2 bees a day PLAN - CIWAA Protocol per hospital order set PROPHYLAXIS DVT/Stroke - Xarelto due to thrombocytopenia GI- not indicated CODE STATUS: FULL CODE DISPOSITION: Patient has bacteremia and pneumonia with the same organism on cultures. Awaiting repeat blood cultures and stabilization of heart rate. We will tweak his rate control agents.
[2019-11-09] MEDS ORDERED: cloNIDine 0.1 MG Tab PO PRN (07:52)
[2019-11-09] MEDS ORDERED: Haloperidol Lactate 5 MG/ML SDV IM PRN (07:52)
[2019-11-09] MEDS ORDERED: Multivitamins,Therapeutic Tab PO ONE (07:52)
[2019-11-09] MEDS ORDERED: LORazepam 2 MG/ML SDV IVPUSH PRN (07:54)
[2019-11-09] MEDS ORDERED: LORazepam 2 MG/ML SDV IV SCH (08:00)
[2019-11-09] MEDS: Metoprolol Tartrate 50 MG Tab PO SCH ×2 (08:07→20:20)
[2019-11-09] MEDS: Oseltamivir 75 MG Cap PO SCH ×2 (08:09→20:19)
[2019-11-09] MEDS: Benzonatate 100 MG Cap PO SCH ×3 (08:09→20:19)
[2019-11-09] MEDS: Rivaroxaban 10 MG Tab PO SCH (08:09)
[2019-11-09] MEDS: guaiFENesin 600 MG Tab.ER PO SCH ×2 (08:09→20:19)
[2019-11-09] MEDS: Remove Patch*NICOTINE TRDERM SCH (08:12)
--- NOTE | 2019-11-09 08:14 | CR ---
Chest: Portable view of the chest was obtained. Comparison: Prior chest x-ray of 11/05/19. Increased density is noted within the right lung. Findings within both sides of chest have improved from previous exam. Findings have not yet completely resolved. Heart size and mediastinum are normal. Previous cervical spine surgery is noted. Mild scoliosis and mild degenerative change is noted within the spine. Impression: 1. Significantly improved appearance of the chest but findings have not yet completely resolved. 2. Other findings which are believed to be incidental. Diagnostic code #2 This report was dictated in [place] Standard Time
[2019-11-09] MEDS ORDERED: Diltiazem IR 60 MG Tab PO SCH (08:15)
[2019-11-09] MEDS: Folic Acid 1 MG Tab PO SCH (08:18)
[2019-11-09] MEDS: Famotidine 20 MG Tab PO SCH ×2 (08:18→20:19)
[2019-11-09] MEDS: Thiamine 100 MG Tab PO SCH (08:18)
[2019-11-09] MEDS: TIMOLOL EYE EYELF SCH ×2 (08:25→20:20)
[2019-11-09] MEDS: BRIMONIDINE EYELF SCH ×2 (08:25→20:20)
[2019-11-09] MEDS: Nicotine 21 MG/24 Hr Patch TRDERM SCH (08:26)
[2019-11-09] MEDS ORDERED: Diltiazem 120 MG Cap.CD PO SCH (09:00)
[2019-11-09] MEDS ORDERED: Metoprolol Tartrate 50 MG Tab PO SCH ×3 (09:00)
[2019-11-09] MEDS ORDERED: Diltiazem 180 MG Cap.CD PO SCH (09:00)
[2019-11-09] MEDS: Levofloxacin/Dextrose 5%-Water 750 MG in Premix Bag 1 BAG IV SCH (11:51)
[2019-11-09] MEDS: Diltiazem IR 60 MG Tab PO SCH ×2 (13:26→20:18)
[2019-11-09] MEDS ORDERED: fentaNYL 100 MCG/2 ML SDV IVPUSH PRN (16:30)
[2019-11-09] MEDS: Diphenhydramine/Lidocaine/MagAl/Simethicone 119 ML Bottle PO PRN (17:29)
[2019-11-09] MEDS: Temazepam 30 MG Cap PO PRN (22:26)
[2019-11-10] MEDS: Levalbuterol HCl 1.25 MG/3 ML Neb NEB SCH ×4 (02:56→21:02)
[2019-11-10] MEDS: methylPREDNISolone Sodium Succinate 40 MG/1 ML SDV IVPUSH SCH ×3 (03:11→20:18)
[2019-11-10] MEDS: Diltiazem IR 60 MG Tab PO SCH ×4 (03:11→20:14)
[2019-11-10] MEDS: Insulin Lispro 100 Units/ML 3 ML Vial SUBCUT PRN ×3 (06:43→17:47)
[2019-11-10] MEDS: glipiZIDE 5 MG Tab PO SCH ×2 (06:43→17:54)
--- NOTE | 2019-11-10 07:05 | PCM.PN ---
- General Info Date of Service: 11/10/19 Admission Dx/Problem (Free Text): Admission Diagnosis/Problem Admission Diagnosis/Problem Pneumonia Subjective Update: No overnight issues. He states I'm feeling pretty good. His HR for the most part is controlled now in the 60-70s. Functional Status: Reports: Pain Controlled, Tolerating Diet, Ambulating, Urinating. Denies: New Symptoms - Review of Systems General: Denies: Fever, Weakness, Fatigue, Malaise, Chills HEENT: Reports: No Symptoms Pulmonary: Denies: Shortness of Breath, Cough Cardiovascular: Denies: Chest Pain, Dyspnea on Exertion, Lightheadedness Gastrointestinal: Denies: Abdominal Pain, Nausea, Vomiting Genitourinary: Reports: No Symptoms Musculoskeletal: Reports: No Symptoms Skin: Denies: Cyanosis Neurological: Denies: Confusion, Numbness, Tingling, Weakness Psychiatric: Denies: Depression, Anxiety, Agitation, Hallucinations - Patient Data Vitals - Most Recent: Last Vital Signs Temp 36.6 C 11/10/19 04:00 Pulse 102 H 11/09/19 20:20 Resp 20 11/10/19 07:00 BP 109/80 11/10/19 07:00 Pulse Ox 94 L 11/10/19 07:00 Weight - Most Recent: 66.678 kg I&O - Last 24 Hours: Intake & Output 11/09/19 11/10/19 11/10/19 22:59 06:59 14:59 Intake Total 1210 1023 Balance 1210 1023 Lab Results Last 24 Hours: Laboratory Results - last 24 hr 11/09/19 11/09/19 11/09/19 Range/Units 06:11 11:00 17:27 WBC (4.23-9.07) K/mm3 RBC (4.63-6.08) M/mm3 Hgb (13.7-17.5) gm/dl Hct (40.1-51.0) % MCV (79.0-92.2) fl MCH (25.7-32.2) pg MCHC (32.2-35.5) g/dl RDW Std Deviation (35.1-43.9) fL Plt Count (163-337) K/mm3 MPV (9.4-12.3) fl Neut % (Auto) (34.0-67.9) % Lymph % (Auto) (21.8-53.1) % Greene % (Auto) (5.3-12.2) % Eos % (Auto) (0.8-7.0) Baso % (Auto) (0.1-1.2) % Neut # (Auto) (1.78-5.38) K/mm3 Lymph # (Auto) (1.32-3.57) K/mm3 Greene # (Auto) (0.30-0.82) K/mm3 Eos # (Auto) (0.04-0.54) K/mm3 Baso # (Auto) (0.01-0.08) K/mm3 Sodium (136-145) mEq/L Potassium (3.5-5.1) mEq/L Chloride (98-107) mEq/L Carbon Dioxide (21-32) mEq/L Anion Gap (5-15) BUN (7-18) mg/dL Creatinine (0.7-1.3) mg/dL Est Cr Clr Drug Dosing mL/min Estimated GFR (MDRD) (>60) mL/min BUN/Creatinine Ratio (14-18) Glucose (74-106) mg/dL POC Glucose 233 H 184 H 280 H (70-105) mg/dL Calcium (8.5-10.1) mg/dL Magnesium (1.8-2.4) mg/dl 11/09/19 11/10/19 11/10/19 Range/Units 20:05 05:48 05:48 WBC 8.76 (4.23-9.07) K/mm3 RBC 4.28 L (4.63-6.08) M/mm3 Hgb 12.8 L (13.7-17.5) gm/dl Hct 38.2 L (40.1-51.0) % MCV 89.3 (79.0-92.2) fl MCH 29.9 (25.7-32.2) pg MCHC 33.5 (32.2-35.5) g/dl RDW Std Deviation 45.2 H (35.1-43.9) fL Plt Count 398 H (163-337) K/mm3 MPV 9.4 (9.4-12.3) fl Neut % (Auto) 84.6 H (34.0-67.9) % Lymph % (Auto) 7.8 L (21.8-53.1) % Greene % (Auto) 7.0 (5.3-12.2) % Eos % (Auto) 0 L (0.8-7.0) Baso % (Auto) 0.1 (0.1-1.2) % Neut # (Auto) 7.42 H (1.78-5.38) K/mm3 Lymph # (Auto) 0.68 L (1.32-3.57) K/mm3 Greene # (Auto) 0.61 (0.30-0.82) K/mm3 Eos # (Auto) 0.00 L (0.04-0.54) K/mm3 Baso # (Auto) 0.01 (0.01-0.08) K/mm3 Sodium 138 (136-145) mEq/L Potassium 4.2 (3.5-5.1) mEq/L Chloride 105 (98-107) mEq/L Carbon Dioxide 25 (21-32) mEq/L Anion Gap 12.2 (5-15) BUN 22 H (7-18) mg/dL Creatinine 0.7 (0.7-1.3) mg/dL Est Cr Clr Drug Dosing 111.13 mL/min Estimated GFR (MDRD) > 60 (>60) mL/min BUN/Creatinine Ratio 31.4 H (14-18) Glucose 197 H (74-106) mg/dL POC Glucose 206 H (70-105) mg/dL Calcium 8.1 L (8.5-10.1) mg/dL Magnesium 1.9 (1.8-2.4) mg/dl 11/10/19 Range/Units 05:54 WBC (4.23-9.07) K/mm3 RBC (4.63-6.08) M/mm3 Hgb (13.7-17.5) gm/dl Hct (40.1-51.0) % MCV (79.0-92.2) fl MCH (25.7-32.2) pg MCHC (32.2-35.5) g/dl RDW Std Deviation (35.1-43.9) fL Plt Count (163-337) K/mm3 MPV (9.4-12.3) fl Neut % (Auto) (34.0-67.9) % Lymph % (Auto) (21.8-53.1) % Greene % (Auto) (5.3-12.2) % Eos % (Auto) (0.8-7.0) Baso % (Auto) (0.1-1.2) % Neut # (Auto) (1.78-5.38) K/mm3 Lymph # (Auto) (1.32-3.57) K/mm3 Greene # (Auto) (0.30-0.82) K/mm3 Eos # (Auto) (0.04-0.54) K/mm3 Baso # (Auto) (0.01-0.08) K/mm3 Sodium (136-145) mEq/L Potassium (3.5-5.1) mEq/L Chloride (98-107) mEq/L Carbon Dioxide (21-32) mEq/L Anion Gap (5-15) BUN (7-18) mg/dL Creatinine (0.7-1.3) mg/dL Est Cr Clr Drug Dosing mL/min Estimated GFR (MDRD) (>60) mL/min BUN/Creatinine Ratio (14-18) Glucose (74-106) mg/dL POC Glucose 196 H (70-105) mg/dL Calcium (8.5-10.1) mg/dL Magnesium (1.8-2.4) mg/dl Abdoul Results Last 24 Hours: Microbiology 11/06/19 13:15 Gram Stain - Final Back Anaerobic Culture - Preliminary 11/06/19 13:15 Gram Stain - Final Back - Left Upper Anaerobic Culture - Preliminary 11/05/19 08:25 Aerobic Blood Culture - Preliminary Blood - Venous - Lab Draw NO GROWTH AFTER 4 DAYS Anaerobic Blood Culture - Preliminary NO GROWTH AFTER 4 DAYS 11/05/19 08:10 Aerobic Blood Culture - Final Blood - Venous Streptococcus Pneumoniae Anaerobic Blood Culture - Preliminary NO GROWTH AFTER 4 DAYS 11/08/19 08:47 Aerobic Blood Culture - Preliminary Blood - Venous - Lab Draw NO GROWTH AFTER 1 DAY Anaerobic Blood Culture - Preliminary NO GROWTH AFTER 1 DAY 11/08/19 08:35 Aerobic Blood Culture - Preliminary Blood - Venous NO GROWTH AFTER 1 DAY Anaerobic Blood Culture - Preliminary NO GROWTH AFTER 1 DAY Med Orders - Current: Current Medications Acetaminophen (Tylenol) 650 mg PO Q4H PRN PRN Reason: Pain (Mild 1-3)/fever Last Admin: 11/06/19 19:58 Dose: 650 mg Benzonatate (Tessalon Perles) 100 mg PO TID [facility] Last Admin: 11/09/19 20:19 Dose: 100 mg Clonidine HCl (Catapres) 0.1 mg PO Q4H PRN PRN Reason: Agitation Dextrose/Water (Dextrose 50% In Water) 0 ml IV ASDIRECTED PRN PRN Reason: Hypoglycemia Diltiazem HCl (Cardizem) 10 mg IVPUSH Q4HR PRN PRN Reason: Arrhythmia Last Admin: 11/09/19 06:40 Dose: 10 mg Diltiazem HCl (Cardizem) 60 mg PO Q6H [facility] Last Admin: 11/10/19 03:11 Dose: 60 mg Diphenhydr/Magaldrate/Simeth/Lidoca (First-Mouthwash Blm Susp) 30 ml PO Q8H PRN PRN Reason: Other Last Admin: 11/09/19 17:29 Dose: 30 ml Famotidine (Pepcid) 20 mg PO Q12H [facility] Last Admin: 11/09/19 20:19 Dose: 20 mg Fentanyl (Sublimaze) 50 mcg IVPUSH DAILY PRN PRN Reason: Wound Care Folic Acid (Folic Acid) 1 mg PO DAILY [facility] Stop: 11/11/19 09:01 Last Admin: 11/09/19 08:18 Dose: 1 mg Glipizide (Glucotrol) 5 mg PO BIDMEALS [facility] Last Admin: 11/10/19 06:43 Dose: 5 mg Guaifenesin (Mucinex) 600 mg PO BID [facility] Last Admin: 11/09/19 20:19 Dose: 600 mg Guaifenesin/Phenylephrine HCl (Robitussin Dm) 10 ml PO Q4H PRN PRN Reason: Cough Last Admin: 11/09/19 22:26 Dose: 10 ml Haloperidol Lactate (Haldol) 2 mg IM Q4H PRN PRN Reason: Agitation Levofloxacin/Dextrose 750 mg/ (Premix) 150 mls @ 100 mls/hr IV Q24H [facility] Last Admin: 11/09/19 11:51 Dose: 100 mls/hr Amiodarone HCl/Dextrose (Nexterone In Dextrose 360 Mg/200 Ml) 360 mg in 200 mls @ 16.7 mls/hr IV ASDIRECTED [facility]; Protocol Stop: 11/10/19 09:31 Last Admin: 11/10/19 02:34 Dose: 16.7 mls/hr Insulin Human Lispro (Humalog) 0 unit SUBCUT Q6H PRN; Protocol PRN Reason: Hyperglycemia Last Admin: 11/10/19 06:43 Dose: 3 units Levalbuterol HCl (Xopenex) 1.25 mg NEB Q6HRRT [facility] Last Admin: 11/10/19 02:56 Dose: 1.25 mg Lorazepam (Ativan) 0 mg IV ASDIRECTED KYLEE; Protocol Lorazepam (Ativan) 0 mg IVPUSH Q4H PRN; Protocol PRN Reason: Withdrawal Symptoms Methylprednisolone Sodium Succinate (Solu-Medrol) 40 mg IVPUSH Q8H [facility] Last Admin: 11/10/19 03:11 Dose: 40 mg Metoprolol Tartrate (Lopressor) 100 mg PO BID [facility] Last Admin: 11/09/19 20:20 Dose: 100 mg Miscellaneous Information (Remove Patch) 1 ea TRDERM DAILY [facility] Last Admin: 11/09/19 08:12 Dose: Not Given Nicotine (Habitrol) 21 mg TRDERM DAILY [facility] Last Admin: 11/09/19 08:26 Dose: Not Given Brimonidine/Timolol (Eye Drop Ptom) 1 drop EYELF BID [facility] Last Admin: 11/09/19 20:20 Dose: 1 drop Oseltamivir Phosphate (Tamiflu) 75 mg PO BID [facility] Stop: 11/11/19 21:01 Last Admin: 11/09/19 20:19 Dose: 75 mg Rivaroxaban (Xarelto) 20 mg PO DAILY [facility] Last Admin: 11/09/19 08:09 Dose: 20 mg Sodium Chloride (Saline Flush) 10 ml FLUSH ASDIRECTED PRN PRN Reason: Keep Vein Open Last Admin: 11/09/19 06:44 Dose: 10 ml Temazepam (Restoril) 30 mg PO BEDTIME PRN PRN Reason: Insomnia Last Admin: 11/09/19 22:26 Dose: 30 mg Thiamine HCl (Vitamin B-1) 100 mg PO DAILY [facility] Last Admin: 11/09/19 08:18 Dose: 100 mg Discontinued Medications Albuterol (Proventil Neb Soln) 2.5 mg NEB ONETIME ONE Stop: 11/05/19 09:31 Last Admin: 11/05/19 10:05 Dose: 2.5 mg Albuterol/Ipratropium (Duoneb 3.0-0.5 Mg/3 Ml) 3 ml NEB ONETIME ONE Stop: 11/05/19 07:56 Last Admin: 11/05/19 08:02 Dose: 3 ml Albuterol/Ipratropium (Duoneb 3.0-0.5 Mg/3 Ml) 3 ml NEB Q4HRRT [facility] Last Admin: 11/07/19 09:03 Dose: 3 ml Diltiazem HCl (Cardizem) 10 mg IVPUSH ONETIME ONE Stop: 11/06/19 20:37 Last Admin: 11/06/19 20:42 Dose: 10 mg Diltiazem HCl (Dilacor Xr) 240 mg PO DAILY [facility] Diltiazem HCl (Dilacor Xr) 240 mg PO DAILY [facility] Last Admin: 11/08/19 07:22 Dose: 240 mg Diltiazem HCl (Cardizem Cd) 120 mg PO DAILY [facility] Diltiazem HCl (Cardizem) 10 mg IVPUSH ONETIME ONE Stop: 11/08/19 08:35 Last Admin: 11/08/19 08:45 Dose: 10 mg Diltiazem HCl (Cardizem Cd) 180 mg PO DAILY [facility] Diltiazem HCl (Cardizem) 60 mg PO Q6HR [facility] Last Admin: 11/09/19 08:18 Dose: 60 mg Diphenhydr/Magaldrate/Simeth/Lidoca (First-Mouthwash Blm Susp) 30 ml PO Q8HR PRN PRN Reason: Other Enoxaparin Sodium (Lovenox) 30 mg SUBCUT Q24H [facility] Fentanyl (Sublimaze) 25 mcg IVPUSH DAILY PRN PRN Reason: Wound Care Last Admin: 11/09/19 16:55 Dose: 25 mcg Glipizide (Glucotrol) 2.5 mg PO BIDMEALS [facility] Last Admin: 11/09/19 06:39 Dose: 2.5 mg Hydromorphone HCl (Dilaudid) 0.5 mg IVPUSH ONETIME ONE Stop: 11/05/19 08:53 Last Admin: 11/05/19 09:00 Dose: 0.5 mg Ceftriaxone Sodium 2 gm/ (Sodium Chloride) 100 mls @ 200 mls/hr IV ONETIME ONE Stop: 11/05/19 08:25 Last Admin: 11/05/19 08:34 Dose: 200 mls/hr Sodium Chloride (Normal Saline) 1,000 mls @ 125 mls/hr IV ASDIRECTED KYLEE Last Admin: 11/06/19 09:10 Dose: 125 mls/hr Sodium Chloride (Normal Saline) 1,000 mls @ 75 mls/hr IV ASDIRECTED KYLEE Diltiazem HCl 125 mg/ Sodium (Chloride) 125 mls @ 5 mls/hr IV TITRATE KYLEE; Protocol Last Titration: 11/07/19 21:37 Dose: 0 mg/hr, 0 mls/hr Magnesium Sulfate 2 gm/ Premix 50 mls @ 25 mls/hr IV ONETIME ONE Stop: 11/08/19 10:29 Last Admin: 11/08/19 09:28 Dose: 25 mls/hr Amiodarone HCl/Dextrose (Nexterone In Dextrose 150 Mg/100 Ml) 100 mls @ 600 mls /hr IV BOLUS ONE; Protocol Stop: 11/08/19 08:44 Last Admin: 11/08/19 09:05 Dose: 600 mls/hr Amiodarone HCl/Dextrose (Nexterone In Dextrose 360 Mg/200 Ml) 360 mg in 200 mls @ 33.333 mls/hr IV ASDIRECTED KYLEE; Protocol Stop: 11/08/19 15:29 Last Admin: 11/08/19 09:22 Dose: 33.333 mls/hr Amiodarone HCl/Dextrose (Nexterone In Dextrose 360 Mg/200 Ml) 360 mg in 200 mls @ 16.7 mls/hr IV ASDIRECTED KYLEE; Protocol Stop: 11/09/19 09:29 Last Admin: 11/09/19 02:56 Dose: 16.7 mls/hr Lidocaine HCl (Xylocaine 1%) 0 ml INJECT ONETIME ONE Stop: 11/06/19 14:01 Last Admin: 11/06/19 16:24 Dose: 5 ml Methylprednisolone Sodium Succinate (Solu-Medrol) 125 mg IVPUSH ONETIME ONE Stop: 11/05/19 07:56 Last Admin: 11/05/19 08:19 Dose: 125 mg Metoprolol Tartrate (Lopressor) 25 mg PO Q12H KYLEE Last Admin: 11/07/19 09:08 Dose: 25 mg Metoprolol Tartrate (Lopressor) Confirm Administered Dose 5 mg .ROUTE .STK-MED ONE Stop: 11/07/19 15:28 Last Admin: 11/07/19 15:35 Dose: Not Given Metoprolol Tartrate (Lopressor) 5 mg IVPUSH Q4H PRN PRN Reason: Tachycardia Last Admin: 11/08/19 08:05 Dose: 5 mg Metoprolol Tartrate (Lopressor) 50 mg PO Q12H [facility] Last Admin: 11/07/19 20:20 Dose: 50 mg Metoprolol Tartrate (Lopressor) 75 mg PO Q12H [facility] Metoprolol Tartrate (Lopressor) 50 mg PO BID [facility] Last Admin: 11/08/19 20:13 Dose: 50 mg Metoprolol Tartrate (Lopressor) 75 mg PO BID [facility] Metoprolol Tartrate (Lopressor) 50 mg PO QID [facility] Metoprolol Tartrate (Lopressor) 100 mg PO QID [facility] Multivitamins (Thera) 1 each PO ONETIME ONE Stop: 11/09/19 07:53 Last Admin: 11/09/19 08:17 Dose: 1 each - Exam General: Alert, Oriented, Cooperative, No Acute Distress HEENT: Pupils Equal, Pupils Reactive, EOMI, Mucous Membr. Moist/[place] Neck: Supple Lungs: Clear to Auscultation, Normal Respiratory Effort Cardiovascular: Regular Rate, Regular Rhythm GI/Abdominal Exam: Normal Bowel Sounds, Soft, Non-Tender, No Organomegaly, No Distention, No Abnormal Bruit, No Mass (Male) Exam: Deferred Back Exam: Normal Inspection, Full Range of Motion Extremities: Normal Inspection, Normal Range of Motion, Non-Tender, No Pedal Edema, Normal Capillary Refill Peripheral Pulses: 2+: Posterior Tibial (L), Posterior Tibial (R), Dorsalis Pedis (L), Dorsalis Pedis (R) Skin: Warm, Dry, Intact Wound/Incisions: Healing Well, Dressing Dry and Intact, No Drainage Neurological: No New Focal Deficit Psy/Mental Status: Alert, Normal Affect, Normal Mood. No: Suicidal Ideation, Homicidal Ideation, Hallucinations, Withdrawal Symptoms Sepsis Event Note - Evaluation Sepsis Screening Result: Severe Sepsis Risk - Focused Exam Vital Signs: Vital Signs Temp Pulse Resp BP BP Pulse Ox Pulse Ox 11/10/19 07:00 20 109/80 94 L 11/10/19 06:00 18 103/64 94 L 11/10/19 05:00 20 107/78 94 L 11/10/19 04:00 36.6 C 21 H 99/67 92 L 11/10/19 03:30 20 91 L 11/10/19 03:00 111/90 11/10/19 02:59 94 L 11/10/19 02:30 20 93 L 11/10/19 02:00 20 106/91 H 93 L 11/10/19 01:30 20 93 L 11/10/19 01:00 19 118/66 93 L 11/10/19 00:30 18 92 L 11/10/19 00:00 36.4 C 17 86/55 L 91 L 11/09/19 23:30 19 11/09/19 23:00 21 H 107/81 94 L 11/09/19 22:45 23 H 99 11/09/19 22:30 17 100 11/09/19 22:15 20 92 L 11/09/19 22:00 19 104/79 94 L 11/09/19 21:30 21 H 95 11/09/19 21:11 93 L 11/09/19 21:00 24 H 110/68 94 L 11/09/19 20:40 92 L 11/09/19 20:20 102 H 113/73 11/09/19 20:00 36.6 C 22 H 111/82 94 L 11/09/19 19:15 22 H 95 Date Exam was Performed: 11/10/19 Time Exam was Performed: 14:19 - Problem List Review Problem List Initiated/Reviewed/Updated: Yes - My Orders Last 24 Hours: My Active Orders 11/09/19 07:52 Haloperidol Lactate [Haldol] 2 mg IM Q4H PRN cloNIDine [Catapres] 0.1 mg PO Q4H PRN Seizure Precautions [OM.PC] Routine 11/09/19 07:53 CIWAA Assessment [RC] Q4HR Notify Provider [RC] PRN 11/09/19 07:54 LORazepam [Ativan] See Protocol IVPUSH Q4H PRN 11/09/19 08:00 Famotidine [Pepcid] 20 mg PO Q12H LORazepam [Ativan] See Protocol IV ASDIRECTED 11/09/19 09:00 Folic Acid 1 mg PO DAILY Metoprolol Tartrate [Lopressor] 100 mg PO BID Thiamine [Vitamin B-1] 100 mg PO DAILY 11/09/19 09:30 Amiodarone In Dextrose,Iso-Osm [Nexterone in Dextrose 360 MG/200 ML] 360 mg in 200 ml IV ASDIRECTED 11/09/19 14:00 Diltiazem IR [Cardizem] 60 mg PO Q6H 11/09/19 17:00 glipiZIDE [Glucotrol] 5 mg PO BIDMEALS 11/10/19 05:48 CBC WITH AUTO DIFF [HEME] DAILY CRP [C-REACTIVE PROTEIN] [CHEM] DAILY 11/10/19 09:00 fentaNYL [Sublimaze] 50 mcg IVPUSH DAILY PRN 11/11/19 05:00 BMP [BASIC METABOLIC PANEL,BMP] [CHEM] DAILY CBC WITH AUTO DIFF [HEME] DAILY MG [MAGNESIUM] [CHEM] DAILY 11/12/19 05:00 BMP [BASIC METABOLIC PANEL,BMP] [CHEM] DAILY CBC WITH AUTO DIFF [HEME] DAILY MG [MAGNESIUM] [CHEM] DAILY 11/13/19 05:00 BMP [BASIC METABOLIC PANEL,BMP] [CHEM] DAILY MG [MAGNESIUM] [CHEM] DAILY - Plan Plan:: Community acquired pneumonia/Pneumonia involving right lung, worse on right base 2/2 Strep pneumonia S/p Hypoxemia Active smoker S/p Hyponatremia Influenza A infection S/p RAD/Probable COPD Exacerbation Bacteremia-positive on bottle aerobic 2/2 Strep pneumonia Worsening cough for 2 weeks O2 sat 84% on RA on admission with PaO2 59-->he is now on RA sating anywhere bet 93-97% No sepsis on admission Mycoplasma and flu swab negative Rapid HIV negative Strep pneumonia organism on sputum and blood culture sensitive to Levaquin Repeat CXR this AM read as significantly improved lungs PLAN - Continue Xopenex Q6H, Solumedrol 40 m g IVP Q12H and Tamiflu 75 mg po BID for 10 days - Scheduled Guaifenesin and Tessalon Perles; PRN Guaifenesin/Dextromethorphan - Procalcitonin, ? pending - S. pneumoniae antigen and Legionella - negative - Respiratory panel PCR-Influenza A positive - Continue on Levaquin - Blood cultured in ED- positive on aerobic bottle - IS/FV as directed - Encourage to ambulate as tolerated - Repeat blood cultures- so far no growth for 24 hrs Atrial Fibrillation with RVR, HR now controlled New onset from acute illness Moved to the unit overnight Amiodarone gtt to stop at 1400 today; then start oral dose TSH normal but FT4 is 1.55 (slightly elevated than normal) Continue Metoprolol increased to 100 mg po BID and Cardizem 60 IR Q6H However his FT4 is slightly elevated, he might benefit with beta blockade Hyperglycemia/Pre-Diabetes, Improving BS of 118--> still in the 200s Carries not hx/o DM of Glucose Intolerance Screen for diabetes: A1C 6.3 On IV steroid-->changed to BID/Q12H Accu-check Q6H with High Intensity ISS and Glucotrol 5 mg po BID Abscess S/p ID, Stable Localized to his back PLAN - Consult PT for wound care - He may need outpatient wound care Hypoalbuminemia Patient does appear to have muscle wasting Albumin of 2.6 PLAN - Prealbumin, pending - Dietary consult Current everyday smoker Smokes 1ppd for 45y PLAN - Nicotine patch; patient refused - Counseled on smoking cessation Subclinical Hyperthyroidism TSH is normal but FT4 is 1.55 (above upper limits of normal) No treatment needed at this time Hx/o Chronic ETOH Use States he drinks 2 bees a day PLAN - CIWAA Protocol per hospital order set Resolved: Oral thrush, Resolved Diagnosed as an outpatient 2 weeks ago and has been taking treatment as indicated Still having severe pain for which his oral intake has significantly decreased There is no obvious leukoplakia Rapid HIV negative PLAN - Scheduled magic mouth wash - Confirmatory HIV test is pending Thrombocytopenia, Resolved No signs of clumping on smear Albumin of 87 --> 116--> 251?? Likely 2/2 Chronic ETOH Use PLAN - Monitor level S/p Hypomagnesemia Mg level of 1.7-->1.9 PLAN Replete and monitor PROPHYLAXIS DVT/Stroke - Xarelto due to thrombocytopenia GI- not indicated CODE STATUS: FULL CODE DISPOSITION: Patient has bacteremia and pneumonia with the same organism on cultures. Repeat blood cultures after 24hrs so far is negative. HR is now controlled even with ambulation or activity.
[2019-11-10] MEDS: Famotidine 20 MG Tab PO SCH ×2 (08:19→20:13)
[2019-11-10] MEDS: Folic Acid 1 MG Tab PO SCH (08:19)
[2019-11-10] MEDS: Rivaroxaban 10 MG Tab PO SCH (08:19)
[2019-11-10] MEDS: Benzonatate 100 MG Cap PO SCH ×3 (08:20→20:13)
[2019-11-10] MEDS: guaiFENesin 600 MG Tab.ER PO SCH ×2 (08:20→20:14)
[2019-11-10] MEDS: Thiamine 100 MG Tab PO SCH (08:20)
[2019-11-10] MEDS: Metoprolol Tartrate 50 MG Tab PO SCH ×2 (08:20→20:12)
[2019-11-10] MEDS: Oseltamivir 75 MG Cap PO SCH ×2 (08:20→20:12)
[2019-11-10] MEDS: Nicotine 21 MG/24 Hr Patch TRDERM SCH (08:21)
[2019-11-10] MEDS: Remove Patch*NICOTINE TRDERM SCH (08:22)
[2019-11-10] MEDS: TIMOLOL EYE EYELF SCH ×2 (08:26→20:17)
[2019-11-10] MEDS: BRIMONIDINE EYELF SCH ×2 (08:26→20:17)
[2019-11-10] MEDS ORDERED: fentaNYL 100 MCG/2 ML SDV IVPUSH PRN (09:00)
[2019-11-10] MEDS: Amiodarone 200 MG Tab PO SCH ×2 (11:56→20:15)
[2019-11-10] MEDS: Levofloxacin 750 MG Tab PO SCH (11:56)
[2019-11-10] MEDS: Insulin Lispro 100 Units/ML 3 ML Vial SUBCUT SCH (21:20)
[2019-11-11] MEDS: Diltiazem IR 60 MG Tab PO SCH (02:05)
[2019-11-11] MEDS: Levalbuterol HCl 1.25 MG/3 ML Neb NEB SCH ×2 (02:15→08:00)
[2019-11-11] MEDS: glipiZIDE 5 MG Tab PO SCH ×2 (06:44→17:52)
[2019-11-11] MEDS: Insulin Lispro 100 Units/ML 3 ML Vial SUBCUT SCH ×4 (06:45→22:06)
--- NOTE | 2019-11-11 07:11 | PCM.PN ---
- General Info Date of Service: 11/11/19 Admission Dx/Problem (Free Text): Admission Diagnosis/Problem Admission Diagnosis/Problem Pneumonia Subjective Update: No overnight issues. He continues to do well. He has no new complaints this AM. He has now converted to sinus rhythm with heart rate sometime overnight in the upper 50s. Functional Status: Reports: Pain Controlled, Tolerating Diet, Ambulating, Urinating. Denies: New Symptoms - Review of Systems General: Denies: Fever, Chills HEENT: Denies: Headaches Pulmonary: Reports: Cough. Denies: Shortness of Breath, Sputum, Wheezing Cardiovascular: Denies: Chest Pain, Dyspnea on Exertion, Lightheadedness Gastrointestinal: Denies: Abdominal Pain, Nausea, Vomiting Genitourinary: Reports: No Symptoms Musculoskeletal: Reports: No Symptoms Skin: Denies: Cyanosis Neurological: Denies: Seizure, Trouble Speaking, Weakness Psychiatric: Denies: Anxiety, Agitation, Hallucinations Systems Review Comment:: No overnight or acute issues. He restd well and no new complaints. He has now converted to sinus rhythm. - Patient Data Vitals - Most Recent: Last Vital Signs Temp 36.3 C 11/11/19 04:00 Pulse 91 11/10/19 20:12 Resp 18 11/11/19 05:15 BP 96/75 11/11/19 05:15 Pulse Ox 93 L 11/11/19 05:15 Weight - Most Recent: 67.313 kg I&O - Last 24 Hours: Intake & Output 11/10/19 11/11/19 11/11/19 22:59 06:59 14:59 Intake Total 1355 800 Balance 1355 800 Lab Results Last 24 Hours: Laboratory Results - last 24 hr 11/10/19 11/10/19 11/10/19 Range/Units 05:48 05:48 13:53 WBC (4.23-9.07) K/mm3 RBC (4.63-6.08) M/mm3 Hgb (13.7-17.5) gm/dl Hct (40.1-51.0) % MCV (79.0-92.2) fl MCH (25.7-32.2) pg MCHC (32.2-35.5) g/dl RDW Std Deviation (35.1-43.9) fL Plt Count (163-337) K/mm3 MPV (9.4-12.3) fl Neut % (Auto) (34.0-67.9) % Lymph % (Auto) (21.8-53.1) % O'Brien % (Auto) (5.3-12.2) % Eos % (Auto) (0.8-7.0) Baso % (Auto) (0.1-1.2) % Neut # (Auto) (1.78-5.38) K/mm3 Lymph # (Auto) (1.32-3.57) K/mm3 O'Brien # (Auto) (0.30-0.82) K/mm3 Eos # (Auto) (0.04-0.54) K/mm3 Baso # (Auto) (0.01-0.08) K/mm3 Manual Slide Review Abnormal smear Sodium (136-145) mEq/L Potassium (3.5-5.1) mEq/L Chloride (98-107) mEq/L Carbon Dioxide (21-32) mEq/L Anion Gap (5-15) BUN (7-18) mg/dL Creatinine (0.7-1.3) mg/dL Est Cr Clr Drug Dosing mL/min Estimated GFR (MDRD) (>60) mL/min BUN/Creatinine Ratio (14-18) Glucose (74-106) mg/dL POC Glucose 282 H (70-105) mg/dL Calcium (8.5-10.1) mg/dL Magnesium (1.8-2.4) mg/dl C-Reactive Protein 1.0 (<1.0) mg/dL 11/10/19 11/10/19 11/11/19 Range/Units 17:37 19:55 05:04 WBC 10.09 H (4.23-9.07) K/mm3 RBC 4.30 L (4.63-6.08) M/mm3 Hgb 12.8 L (13.7-17.5) gm/dl Hct 38.6 L (40.1-51.0) % MCV 89.8 (79.0-92.2) fl MCH 29.8 (25.7-32.2) pg MCHC 33.2 (32.2-35.5) g/dl RDW Std Deviation 45.0 H (35.1-43.9) fL Plt Count 478 H D (163-337) K/mm3 MPV 9.8 (9.4-12.3) fl Neut % (Auto) 87.2 H (34.0-67.9) % Lymph % (Auto) 5.8 L (21.8-53.1) % O'Brien % (Auto) 6.4 (5.3-12.2) % Eos % (Auto) 0 L (0.8-7.0) Baso % (Auto) 0.1 (0.1-1.2) % Neut # (Auto) 8.79 H (1.78-5.38) K/mm3 Lymph # (Auto) 0.59 L (1.32-3.57) K/mm3 O'Brien # (Auto) 0.65 (0.30-0.82) K/mm3 Eos # (Auto) 0.00 L (0.04-0.54) K/mm3 Baso # (Auto) 0.01 (0.01-0.08) K/mm3 Manual Slide Review Sodium (136-145) mEq/L Potassium (3.5-5.1) mEq/L Chloride (98-107) mEq/L Carbon Dioxide (21-32) mEq/L Anion Gap (5-15) BUN (7-18) mg/dL Creatinine (0.7-1.3) mg/dL Est Cr Clr Drug Dosing mL/min Estimated GFR (MDRD) (>60) mL/min BUN/Creatinine Ratio (14-18) Glucose (74-106) mg/dL POC Glucose 295 H 321 H (70-105) mg/dL Calcium (8.5-10.1) mg/dL Magnesium (1.8-2.4) mg/dl C-Reactive Protein (<1.0) mg/dL 11/11/19 11/11/19 Range/Units 05:04 06:00 WBC (4.23-9.07) K/mm3 RBC (4.63-6.08) M/mm3 Hgb (13.7-17.5) gm/dl Hct (40.1-51.0) % MCV (79.0-92.2) fl MCH (25.7-32.2) pg MCHC (32.2-35.5) g/dl RDW Std Deviation (35.1-43.9) fL Plt Count (163-337) K/mm3 MPV (9.4-12.3) fl Neut % (Auto) (34.0-67.9) % Lymph % (Auto) (21.8-53.1) % O[place]Brien % (Auto) (5.3-12.2) % Eos % (Auto) (0.8-7.0) Baso % (Auto) (0.1-1.2) % Neut # (Auto) (1.78-5.38) K/mm3 Lymph # (Auto) (1.32-3.57) K/mm3 O'Brien # (Auto) (0.30-0.82) K/mm3 Eos # (Auto) (0.04-0.54) K/mm3 Baso # (Auto) (0.01-0.08) K/mm3 Manual Slide Review Sodium 135 L (136-145) mEq/L Potassium 4.2 (3.5-5.1) mEq/L Chloride 104 (98-107) mEq/L Carbon Dioxide 24 (21-32) mEq/L Anion Gap 11.2 (5-15) BUN 24 H (7-18) mg/dL Creatinine 0.7 (0.7-1.3) mg/dL Est Cr Clr Drug Dosing 112.19 mL/min Estimated GFR (MDRD) > 60 (>60) mL/min BUN/Creatinine Ratio 34.3 H (14-18) Glucose 196 H (74-106) mg/dL POC Glucose 191 H (70-105) mg/dL Calcium 8.0 L (8.5-10.1) mg/dL Magnesium 1.8 (1.8-2.4) mg/dl C-Reactive Protein (<1.0) mg/dL Abdoul Results Last 24 Hours: Microbiology 11/06/19 13:15 Gram Stain - Final Back - Left Upper Anaerobic Culture - Preliminary 11/06/19 13:15 Gram Stain - Final Back Anaerobic Culture - Preliminary 11/05/19 08:25 Aerobic Blood Culture - Preliminary Blood - Venous - Lab Draw NO GROWTH AFTER 5 DAYS Anaerobic Blood Culture - Preliminary NO GROWTH AFTER 5 DAYS 11/05/19 08:10 Aerobic Blood Culture - Final Blood - Venous Streptococcus Pneumoniae Anaerobic Blood Culture - Preliminary NO GROWTH AFTER 5 DAYS 11/08/19 08:47 Aerobic Blood Culture - Preliminary Blood - Venous - Lab Draw NO GROWTH AFTER 2 DAYS Anaerobic Blood Culture - Preliminary NO GROWTH AFTER 2 DAYS 11/08/19 08:35 Aerobic Blood Culture - Preliminary Blood - Venous NO GROWTH AFTER 2 DAYS Anaerobic Blood Culture - Preliminary NO GROWTH AFTER 2 DAYS Med Orders - Current: Current Medications Acetaminophen (Tylenol) 650 mg PO Q4H PRN PRN Reason: Pain (Mild 1-3)/fever Last Admin: 11/06/19 19:58 Dose: 650 mg Amiodarone HCl (Cordarone) 200 mg PO BID [facility] Last Admin: 11/10/19 20:15 Dose: 200 mg Benzonatate (Tessalon Perles) 100 mg PO TID [facility] Last Admin: 11/10/19 20:13 Dose: 100 mg Clonidine HCl (Catapres) 0.1 mg PO Q4H PRN PRN Reason: Agitation Dextrose/Water (Dextrose 50% In Water) 0 ml IV ASDIRECTED PRN PRN Reason: Hypoglycemia Diltiazem HCl (Cardizem) 10 mg IVPUSH Q4HR PRN PRN Reason: Arrhythmia Last Admin: 11/09/19 06:40 Dose: 10 mg Diltiazem HCl (Cardizem) 60 mg PO Q6H [facility] Last Admin: 11/11/19 02:05 Dose: 60 mg Diphenhydr/Magaldrate/Simeth/Lidoca (First-Mouthwash Blm Susp) 30 ml PO Q8H PRN PRN Reason: Other Last Admin: 11/09/19 17:29 Dose: 30 ml Famotidine (Pepcid) 20 mg PO Q12H [facility] Last Admin: 11/10/19 20:13 Dose: 20 mg Folic Acid (Folic Acid) 1 mg PO DAILY [facility] Stop: 11/11/19 09:01 Last Admin: 11/10/19 08:19 Dose: 1 mg Glipizide (Glucotrol) 5 mg PO BIDMEALS [facility] Last Admin: 11/11/19 06:44 Dose: 5 mg Guaifenesin (Mucinex) 600 mg PO BID [facility] Last Admin: 11/10/19 20:14 Dose: 600 mg Guaifenesin/Phenylephrine HCl (Robitussin Dm) 10 ml PO Q4H PRN PRN Reason: Cough Last Admin: 11/09/19 22:26 Dose: 10 ml Haloperidol Lactate (Haldol) 2 mg IM Q4H PRN PRN Reason: Agitation Insulin Human Lispro (Humalog) 0 unit SUBCUT QIDACANDBED [facility]; Protocol Last Admin: 11/11/19 06:45 Dose: 3 units Levalbuterol HCl (Xopenex) 1.25 mg NEB Q6HRRT [facility] Last Admin: 11/11/19 02:15 Dose: 1.25 mg Levofloxacin (Levaquin) 750 mg PO 1200 [facility] Last Admin: 11/10/19 11:56 Dose: 750 mg Lorazepam (Ativan) 0 mg IV ASDIRECTED [facility]; Protocol Lorazepam (Ativan) 0 mg IVPUSH Q4H PRN; Protocol PRN Reason: Withdrawal Symptoms Methylprednisolone Sodium Succinate (Solu-Medrol) 40 mg IVPUSH DAILY [facility] Metoprolol Tartrate (Lopressor) 100 mg PO BID [facility] Last Admin: 11/10/19 20:12 Dose: 100 mg Miscellaneous Information (Remove Patch) 1 ea TRDERM DAILY [facility] Last Admin: 11/10/19 08:22 Dose: Not Given Nicotine (Habitrol) 21 mg TRDERM DAILY [facility] Last Admin: 11/10/19 08:21 Dose: Not Given Brimonidine/Timolol (Eye Drop Ptom) 1 drop EYELF BID [facility] Last Admin: 11/10/19 20:17 Dose: 1 drop Oseltamivir Phosphate (Tamiflu) 75 mg PO BID [facility] Stop: 11/11/19 21:01 Last Admin: 11/10/19 20:12 Dose: 75 mg Rivaroxaban (Xarelto) 20 mg PO DAILY [facility] Last Admin: 11/10/19 08:19 Dose: 20 mg Sodium Chloride (Saline Flush) 10 ml FLUSH ASDIRECTED PRN PRN Reason: Keep Vein Open Last Admin: 11/09/19 06:44 Dose: 10 ml Temazepam (Restoril) 30 mg PO BEDTIME PRN PRN Reason: Insomnia Last Admin: 11/09/19 22:26 Dose: 30 mg Thiamine HCl (Vitamin B-1) 100 mg PO DAILY [facility] Last Admin: 11/10/19 08:20 Dose: 100 mg Discontinued Medications Albuterol (Proventil Neb Soln) 2.5 mg NEB ONETIME ONE Stop: 11/05/19 09:31 Last Admin: 11/05/19 10:05 Dose: 2.5 mg Albuterol/Ipratropium (Duoneb 3.0-0.5 Mg/3 Ml) 3 ml NEB ONETIME ONE Stop: 11/05/19 07:56 Last Admin: 11/05/19 08:02 Dose: 3 ml Albuterol/Ipratropium (Duoneb 3.0-0.5 Mg/3 Ml) 3 ml NEB Q4HRRT [facility] Last Admin: 11/07/19 09:03 Dose: 3 ml Diltiazem HCl (Cardizem) 10 mg IVPUSH ONETIME ONE Stop: 11/06/19 20:37 Last Admin: 11/06/19 20:42 Dose: 10 mg Diltiazem HCl (Dilacor Xr) 240 mg PO DAILY [facility] Diltiazem HCl (Dilacor Xr) 240 mg PO DAILY [facility] Last Admin: 11/08/19 07:22 Dose: 240 mg Diltiazem HCl (Cardizem Cd) 120 mg PO DAILY [facility] Diltiazem HCl (Cardizem) 10 mg IVPUSH ONETIME ONE Stop: 11/08/19 08:35 Last Admin: 11/08/19 08:45 Dose: 10 mg Diltiazem HCl (Cardizem Cd) 180 mg PO DAILY [facility] Diltiazem HCl (Cardizem) 60 mg PO Q6HR [facility] Last Admin: 11/09/19 08:18 Dose: 60 mg Diphenhydr/Magaldrate/Simeth/Lidoca (First-Mouthwash Blm Susp) 30 ml PO Q8HR PRN PRN Reason: Other Enoxaparin Sodium (Lovenox) 30 mg SUBCUT Q24H [facility] Fentanyl (Sublimaze) 25 mcg IVPUSH DAILY PRN PRN Reason: Wound Care Last Admin: 11/09/19 16:55 Dose: 25 mcg Fentanyl (Sublimaze) 50 mcg IVPUSH DAILY PRN PRN Reason: Wound Care Glipizide (Glucotrol) 2.5 mg PO BIDMEALS [facility] Last Admin: 11/09/19 06:39 Dose: 2.5 mg Hydromorphone HCl (Dilaudid) 0.5 mg IVPUSH ONETIME ONE Stop: 11/05/19 08:53 Last Admin: 11/05/19 09:00 Dose: 0.5 mg Ceftriaxone Sodium 2 gm/ (Sodium Chloride) 100 mls @ 200 mls/hr IV ONETIME ONE Stop: 11/05/19 08:25 Last Admin: 11/05/19 08:34 Dose: 200 mls/hr Sodium Chloride (Normal Saline) 1,000 mls @ 125 mls/hr IV ASDIRECTED KYLEE Last Admin: 11/06/19 09:10 Dose: 125 mls/hr Levofloxacin/Dextrose 750 mg/ (Premix) 150 mls @ 100 mls/hr IV Q24H [facility] Last Admin: 11/09/19 11:51 Dose: 100 mls/hr Sodium Chloride (Normal Saline) 1,000 mls @ 75 mls/hr IV ASDIRECTED KYLEE Diltiazem HCl 125 mg/ Sodium (Chloride) 125 mls @ 5 mls/hr IV TITRATE KYLEE; Protocol Last Titration: 11/07/19 21:37 Dose: 0 mg/hr, 0 mls/hr Magnesium Sulfate 2 gm/ Premix 50 mls @ 25 mls/hr IV ONETIME ONE Stop: 11/08/19 10:29 Last Admin: 11/08/19 09:28 Dose: 25 mls/hr Amiodarone HCl/Dextrose (Nexterone In Dextrose 150 Mg/100 Ml) 100 mls @ 600 mls /hr IV BOLUS ONE; Protocol Stop: 11/08/19 08:44 Last Admin: 11/08/19 09:05 Dose: 600 mls/hr Amiodarone HCl/Dextrose (Nexterone In Dextrose 360 Mg/200 Ml) 360 mg in 200 mls @ 33.333 mls/hr IV ASDIRECTED KYLEE; Protocol Stop: 11/08/19 15:29 Last Admin: 11/08/19 09:22 Dose: 33.333 mls/hr Amiodarone HCl/Dextrose (Nexterone In Dextrose 360 Mg/200 Ml) 360 mg in 200 mls @ 16.7 mls/hr IV ASDIRECTED KYLEE; Protocol Stop: 11/09/19 09:29 Last Admin: 11/09/19 02:56 Dose: 16.7 mls/hr Amiodarone HCl/Dextrose (Nexterone In Dextrose 360 Mg/200 Ml) 360 mg in 200 mls @ 16.7 mls/hr IV ASDIRECTED KYLEE; Protocol Stop: 11/10/19 09:31 Last Admin: 11/10/19 02:34 Dose: 16.7 mls/hr Insulin Human Lispro (Humalog) 0 unit SUBCUT Q6H PRN; Protocol PRN Reason: Hyperglycemia Last Admin: 11/10/19 17:47 Dose: 9 units Lidocaine HCl (Xylocaine 1%) 0 ml INJECT ONETIME ONE Stop: 11/06/19 14:01 Last Admin: 11/06/19 16:24 Dose: 5 ml Methylprednisolone Sodium Succinate (Solu-Medrol) 125 mg IVPUSH ONETIME ONE Stop: 11/05/19 07:56 Last Admin: 11/05/19 08:19 Dose: 125 mg Methylprednisolone Sodium Succinate (Solu-Medrol) 40 mg IVPUSH Q8H [facility] Last Admin: 11/10/19 03:11 Dose: 40 mg Methylprednisolone Sodium Succinate (Solu-Medrol) 40 mg IVPUSH BID [facility] Last Admin: 11/10/19 20:18 Dose: 40 mg Metoprolol Tartrate (Lopressor) 25 mg PO Q12H [facility] Last Admin: 11/07/19 09:08 Dose: 25 mg Metoprolol Tartrate (Lopressor) Confirm Administered Dose 5 mg .ROUTE .STK-MED ONE Stop: 11/07/19 15:28 Last Admin: 11/07/19 15:35 Dose: Not Given Metoprolol Tartrate (Lopressor) 5 mg IVPUSH Q4H PRN PRN Reason: Tachycardia Last Admin: 11/08/19 08:05 Dose: 5 mg Metoprolol Tartrate (Lopressor) 50 mg PO Q12H [facility] Last Admin: 11/07/19 20:20 Dose: 50 mg Metoprolol Tartrate (Lopressor) 75 mg PO Q12H [facility] Metoprolol Tartrate (Lopressor) 50 mg PO BID [facility] Last Admin: 11/08/19 20:13 Dose: 50 mg Metoprolol Tartrate (Lopressor) 75 mg PO BID [facility] Metoprolol Tartrate (Lopressor) 50 mg PO QID [facility] Metoprolol Tartrate (Lopressor) 100 mg PO QID [facility] Multivitamins (Thera) 1 each PO ONETIME ONE Stop: 11/09/19 07:53 Last Admin: 11/09/19 08:17 Dose: 1 each - Exam Quality Assessment: No: Supplemental Oxygen General: Alert, Oriented, Cooperative, No Acute Distress HEENT: Pupils Equal, Pupils Reactive, EOMI, Mucous Membr. Moist/[place] Neck: Supple Lungs: Normal Respiratory Effort, Wheezing (posterior left lung) Cardiovascular: Regular Rhythm, Bradycardia GI/Abdominal Exam: Normal Bowel Sounds, Soft, Non-Tender, No Organomegaly, No Distention, No Abnormal Bruit, No Mass (Male) Exam: Deferred Back Exam: Normal Inspection, Decreased Range of Motion, Other (Wound: covered and intact) Extremities: Normal Inspection, Normal Range of Motion, Non-Tender, No Pedal Edema, Normal Capillary Refill Peripheral Pulses: 2+: Posterior Tibial (L), Posterior Tibial (R), Dorsalis Pedis (L), Dorsalis Pedis (R) Skin: Warm, Dry, Intact Wound/Incisions: Healing Well, Dressing Dry and Intact, No Drainage Neurological: No New Focal Deficit Psy/Mental Status: Alert, Normal Affect, Normal Mood Sepsis Event Note - Evaluation Sepsis Screening Result: No Definite Risk - Focused Exam Vital Signs: Vital Signs Temp Pulse Resp BP BP Pulse Ox Pulse Ox 11/11/19 05:15 18 96/75 93 L 11/11/19 04:00 36.3 C 18 91/49 L 93 L 11/11/19 02:17 92 L 11/10/19 22:00 93 L 11/10/19 21:03 94 L 11/10/19 20:15 36.5 C 20 129/114 H 93 L 11/10/19 20:12 91 129/114 H Date Exam was Performed: 11/11/19 Time Exam was Performed: 13:52 - Problem List Review Problem List Initiated/Reviewed/Updated: Yes - My Orders Last 24 Hours: My Active Orders 11/10/19 10:58 Patient Status [ADT] Routine 11/10/19 11:45 Amiodarone [Cordarone] 200 mg PO BID 11/10/19 12:00 levoFLOXacin [Levaquin] 750 mg PO 1200 11/10/19 22:00 Insulin Lispro [HumaLOG] See Protocol SUBCUT QIDACANDBED 11/11/19 05:04 CBC WITH AUTO DIFF [HEME] DAILY 11/11/19 06:25 EKG 12 Lead [EKG Documentation Completion] [RC] STAT 11/11/19 09:00 methylPREDNISolone Sod Succ [Solu-MEDROL] 40 mg IVPUSH DAILY 11/12/19 05:00 BMP [BASIC METABOLIC PANEL,BMP] [CHEM] DAILY CBC WITH AUTO DIFF [HEME] DAILY MG [MAGNESIUM] [CHEM] DAILY 11/13/19 05:00 BMP [BASIC METABOLIC PANEL,BMP] [CHEM] DAILY MG [MAGNESIUM] [CHEM] DAILY - Plan Plan:: Community acquired pneumonia/Pneumonia involving right lung, worse on right base 2/2 Strep pneumonia S/p Hypoxemia Active smoker S/p Hyponatremia Influenza A infection S/p RAD/Probable COPD Exacerbation Bacteremia-positive on bottle aerobic 2/2 Strep pneumonia Worsening cough for 2 weeks O2 sat 84% on RA on admission with PaO2 59-->he is now on RA sating anywhere bet 93-97% No sepsis on admission Mycoplasma and flu swab negative Rapid HIV negative Strep pneumonia organism on sputum and blood culture sensitive to Levaquin Repeat CXR this AM read as significantly improved lungs PLAN - Continue Xopenex Q6H, Prednisone 20 nf po daily and Tamiflu 75 mg po BID for 10 days - Scheduled Guaifenesin and Tessalon Perles; PRN Guaifenesin/Dextromethorphan - S. pneumoniae antigen and Legionella - negative - Respiratory panel PCR-Influenza A positive - Continue on Levaquin - Blood cultured in ED- positive on aerobic bottle - IS/FV as directed - Encourage to ambulate as tolerated - Repeat blood cultures- negative for 48 hrs Atrial Fibrillation with RVR, HR now controlled New onset from acute illness Moved to the unit overnight Continue Amiodarone 200 mg po BID TSH normal but FT4 is 1.55 (slightly elevated than normal) Changed Metoprolol to 75 mg po BID and discontinue Cardizem 60 IR Q6H However his FT4 is slightly elevated, he might benefit with beta blockade Hyperglycemia/Pre-Diabetes, Improving BS of 118--> still in the 200s Carries not hx/o DM of Glucose Intolerance Screen for diabetes: A1C 6.3 Now on Prednisone 20 mg po daily Lantus 5 units SubQ BID Accu-check Q6H with High Intensity ISS and Glucotrol 5 mg po BID Abscess S/p ID, Stable Localized to his back PLAN - Consult PT for wound care - He may need outpatient wound care Hypoalbuminemia,likely Improved Patient does appear to have muscle wasting Albumin of 2.6 PLAN - Prealbumin, pending - Dietary consult Current everyday smoker Smokes 1ppd for 45y PLAN - Nicotine patch; patient refused - Counseled on smoking cessation Subclinical Hyperthyroidism TSH is normal but FT4 is 1.55 (above upper limits of normal) No treatment needed at this time Hx/o Chronic ETOH Use States he drinks 2 bees a day PLAN - CIWAA Protocol per hospital order set Resolved: Oral thrush, Resolved Diagnosed as an outpatient 2 weeks ago and has been taking treatment as indicated Still having severe pain for which his oral intake has significantly decreased There is no obvious leukoplakia Rapid HIV negative PLAN - Scheduled magic mouth wash - Confirmatory HIV test is pending Thrombocytopenia, Resolved No signs of clumping on smear Albumin of 87 --> 116--> 251?? Likely 2/2 Chronic ETOH Use PLAN - Monitor level S/p Hypomagnesemia Mg level of 1.7-->1.9 PLAN Replete and monitor PROPHYLAXIS DVT/Stroke - Xarelto due to thrombocytopenia GI- not indicated CODE STATUS: FULL CODE DISPOSITION: Patient has bacteremia and pneumonia with the same organism on cultures. Repeat blood cultures after 48hrs is negative. HR is now drops in the 50s, will try to de-escalate rate control agents. If he continues to do well, he may be able to go home tomorrow.
[2019-11-11] MEDS: BRIMONIDINE EYELF SCH ×2 (08:18→20:48)
[2019-11-11] MEDS: TIMOLOL EYE EYELF SCH ×2 (08:18→20:48)
[2019-11-11] MEDS: Metoprolol Tartrate 50 MG Tab PO SCH ×2 (08:19→20:45)
[2019-11-11] MEDS: Thiamine 100 MG Tab PO SCH (08:22)
[2019-11-11] MEDS: Famotidine 10 MG Tab PO SCH ×2 (08:22→20:45)
[2019-11-11] MEDS: Folic Acid 1 MG Tab PO SCH (08:22)
[2019-11-11] MEDS: Benzonatate 100 MG Cap PO SCH ×4 (08:23→20:47)
[2019-11-11] MEDS: Amiodarone 200 MG Tab PO SCH ×2 (08:23→20:47)
[2019-11-11] MEDS: Rivaroxaban 10 MG Tab PO SCH (08:23)
[2019-11-11] MEDS: Oseltamivir 75 MG Cap PO SCH ×2 (08:24→20:47)
[2019-11-11] MEDS: guaiFENesin 600 MG Tab.ER PO SCH ×2 (08:24→20:45)
[2019-11-11] MEDS ORDERED: methylPREDNISolone Sodium Succinate 40 MG/1 ML SDV IVPUSH SCH (09:00)
[2019-11-11] MEDS: Remove Patch*NICOTINE TRDERM SCH (10:13)
[2019-11-11] MEDS: Nicotine 21 MG/24 Hr Patch TRDERM SCH (10:13)
[2019-11-11] MEDS: Famotidine 20 MG Tab PO SCH (10:14)
[2019-11-11] MEDS: Levofloxacin 750 MG Tab PO SCH (13:37)
[2019-11-11] MEDS ORDERED: Levalbuterol HCl 1.25 MG/3 ML Neb NEB PRN (14:12)
[2019-11-11] MEDS: Insulin Glarg,Human.Rec.Analog 100 Unit/ML SUBCUT SCH (17:51)
[2019-11-11] MEDS: Diphenhydramine/Lidocaine/MagAl/Simethicone 119 ML Bottle PO PRN (17:57)
[2019-11-12] MEDS: Insulin Glarg,Human.Rec.Analog 100 Unit/ML SUBCUT SCH (06:19)
[2019-11-12] MEDS: glipiZIDE 5 MG Tab PO SCH (06:19)
[2019-11-12] MEDS: Insulin Lispro 100 Units/ML 3 ML Vial SUBCUT SCH ×2 (06:21→11:25)
[2019-11-12] MEDS ORDERED: predniSONE 20 MG Tab PO SCH (07:00)
[2019-11-12] MEDS: Benzonatate 100 MG Cap PO SCH (08:03)
[2019-11-12] MEDS: Famotidine 10 MG Tab PO SCH (08:03)
[2019-11-12] MEDS: Rivaroxaban 10 MG Tab PO SCH (08:03)
[2019-11-12] MEDS: Amiodarone 200 MG Tab PO SCH (08:03)
[2019-11-12] MEDS: guaiFENesin 600 MG Tab.ER PO SCH (08:03)
[2019-11-12] MEDS: Thiamine 100 MG Tab PO SCH (08:03)
[2019-11-12] MEDS: TIMOLOL EYE EYELF SCH (08:04)
[2019-11-12] MEDS: Remove Patch*NICOTINE TRDERM SCH (08:04)
[2019-11-12] MEDS: Nicotine 21 MG/24 Hr Patch TRDERM SCH (08:04)
[2019-11-12] MEDS: BRIMONIDINE EYELF SCH (08:04)
[2019-11-12] MEDS ORDERED: Magnesium Sulfate/Water 2 GM in Premix Bag 1 BAG IV ONE (08:08)
[2019-11-12] MEDS ORDERED: Metoprolol Tartrate 50 MG Tab PO SCH (09:00)
[2019-11-12] MEDS: Levofloxacin 750 MG Tab PO SCH (11:45)
--- NOTE | 2019-11-12 12:03 | PCM.DCSUM1 ---
Discharge Summary - Hospital Course HPI Initial Comments: This is a 54 year old male who is a daily smoker and comes to ED complaining of worsening productive cough as well as shortness of breath and was diagnosed with PNA and Influenza A Infection. Diagnosis: Stroke: No Modified [place] Scale: No Symptoms at All Modified [place] Scale Score: 0 - Discharge Data Discharge Date: 11/12/19 Discharge Disposition: Home, Self-Care 01 Condition: Good - Referral to Home Health Primary Care Physician: PCP None - Patient Summary/Data Operative Procedure(s) Performed: ID on back Complications: None Consults: Consultations 11/05/19 18:44 Consult to Dietary [Consult to Soil Conservationist] [CONS] Routine 11/07/19 11:55 PT Evaluation and Treatment [CONS] Routine 11/11/19 09:52 Consult to Diabetic Nurse Specialist [CONS] Routine Labs Pending at D/C: CBC, mg and CMP in 1 week Recommended Follow-up Testing/Procedures: Follow with General Surgery/Wound Care after discharge Planned Operative Procedure(s) after DC: None Hospital Course: Patient was admitted with complex presenting illness to include community acquired pneumonia, COPD exacerbation, influenza infection, and sepsis. He received significant medical treatment as well as intravenous antibiotics to resolve his symptoms. And with the treatment provided, he slowly improved clinically. His hospitalization was prolonged due to development of bacteremia and new onset of atrial fibrillation. But with appropriate treatment, he improved considerably. His repeat blood cultures were negative, 2D showed now infectious growth, and his heart rate chemically converted back to sinus rhythm. As for his back abscess, he had inpatient I&D performed by Dr. Allen and will have wound care services after discharge. Once medically stable, patient was discharged home. He was advised to follow discharge instructions and to follow up with PCP after discharge. He was further advised to quit smoking and see patient care specialist as scheduled. The patient and his expressed understanding and in agreement with the plans as discussed above. All questions and concerns answered. - Patient Instructions Diet: Heart Healthy Diet, Usual Diet as Tolerated Activity: As Tolerated Driving, Other: do not drive today Showering/Bathing: May Shower Wound/Incision Care: Keep Operative Site/Wound Site Clean and Dry, Change Dressing Daily Notify Provider of: Fever, Increased Pain, Swelling and Redness, Drainage, Nausea and/or Vomiting Other/Special Instructions: - Please take all new medications as directed. - Resume all home medications and routine home activities as tolerated. - Recommend follow up CBC, Mg and CMP next 1 week through your PCP's office. - Use Incentive Spirometry for a week as directed. - Ambulate as many times as you can to avoid blood clot. - Follow wound care instructions. - Call or follow up with your PCP for any questions or concerns after discharge. - Follow up with your PCP in 1 week with repeat labs. - Come back or seek immediate care should your symptoms persist or get worse - Discharge Plan *PRESCRIPTION DRUG MONITORING PROGRAM REVIEWED*: Not Applicable *COPY OF PRESCRIPTION DRUG MONITORING REPORT IN PATIENT JOSE MARIA: Not Applicable Prescriptions/Med Rec: Amiodarone [Cordarone] 200 mg PO BID #60 tablet Dextromethorphan/guaiFENesin [Robitussin DM] 10 ml PO Q4H PRN #15 cup PRN Reason: Cough Diphenhyd/Lidocaine/MagAl/Zahida [First-Mouthwash BLM Susp] 30 ml PO Q8H PRN #6 bottle PRN Reason: Oral Thrush levoFLOXacin [Levaquin] 750 mg PO 1200 #3 tablet metFORMIN HCl [Glucophage XR] 500 mg PO WDIN #30 tab.sr.24h Metoprolol Tartrate [Lopressor] 50 mg PO Q12H #60 tablet Nicotine [Habitrol] 21 mg TRDERM DAILY #30 patch Rivaroxaban [Xarelto] 20 mg PO DAILY #60 tablet Saccharomyces Boulardii [Florastor] 250 mg PO DAILY #10 capsule Home Medications: Home Meds Albuterol Sulfate [Albuterol Sulfate Hfa] 1 - 2 puff INH ASDIRECTED 11/05/19 [ History] Nystatin 100,000 unit PO QID 11/05/19 [History] Brimonidine/Timolol [Combigan 0.2%/0.5% Ophth Soln] 1 drop EYELF BID 11/07/19 [ History] Amiodarone [Cordarone] 200 mg PO BID #60 tablet 11/12/19 [Rx] Dextromethorphan/guaiFENesin [Robitussin DM] 10 ml PO Q4H PRN #15 cup 11/12/19 [ Rx] Diphenhyd/Lidocaine/MagAl/Zahida [First-Mouthwash BLM Susp] 30 ml PO Q8H PRN #6 bottle 11/12/19 [Rx] Metoprolol Tartrate [Lopressor] 50 mg PO Q12H #60 tablet 11/12/19 [Rx] Nicotine [Habitrol] 21 mg TRDERM DAILY #30 patch 11/12/19 [Rx] Rivaroxaban [Xarelto] 20 mg PO DAILY #60 tablet 11/12/19 [Rx] Saccharomyces Boulardii [Florastor] 250 mg PO DAILY #10 capsule 11/12/19 [Rx] levoFLOXacin [Levaquin] 750 mg PO 1200 #3 tablet 11/12/19 [Rx] metFORMIN HCl [Glucophage XR] 500 mg PO WDIN #30 tab.sr.24h 11/12/19 [Rx] Oxygen Therapy Mode: Room Air Patient Handouts: Chronic Obstructive Pulmonary Disease Exacerbation, Easy-to- Read, Prediabetes, Skin Abscess, Hypoxemia, Rivaroxaban oral tablets, Hyponatremia, [id number], Hypomagnesemia, Sepsis, Adult, Incision and Drainage , Care After, Tobacco Use Disorder, Bacteremia, Steps to Quit Smoking, Atrial Fibrillation, [id number], Community-Acquired Pneumonia, Adult Referrals: Tanya Wise PA-C [Physician [employer]] - 11/13/19 9:30 am (Primary care provider appointment (hospital follow-up). This appointment is at 10:00 am but you must check in at 09:30 am to complete new patient papework. There are pulmonary function tests ordered for you in 2 weeks.) PCP,None [Primary Care Provider] - Ovidio Geiger MD [Physician] - 11/14/19 1:15 pm (Surgeon appointment. This appointment is to evaluate healing of the wound on your back.) - Discharge Summary/Plan Comment DC Time >30 min.: Yes (45 mins) Discharge Summary/Plan Comment: Discharge to Home Offered practical counseling on smoking cigarettes. He was counseled about the dangers of smoking and associated health risks. At this time he is not ready to quit but receptive to the idea of smoking cessation. Patient was provided reading materials or brochures to help when to quit smoking. He was advised to set a specific date, call the Quit line and follow up with his PCP when he is ready to quit. - General Info Date of Service: 11/12/19 Admission Dx/Problem (Free Text: Admission Diagnosis/Problem Admission Diagnosis/Problem Pneumonia Subjective Update: No overnight issues. He continues to do well. He has no new complaints this AM. He has now converted to sinus rhythm with heart rate sometime overnight in the upper 50s. Functional Status: Reports: Pain Controlled, Tolerating Diet, Ambulating, Urinating - Review of Systems General: Denies: Fever, Weakness, Fatigue, Malaise, Chills HEENT: Reports: No Symptoms Pulmonary: Denies: Shortness of Breath, Pleuritic Chest Pain, Cough Cardiovascular: Denies: Chest Pain, Dyspnea on Exertion, Lightheadedness Gastrointestinal: Denies: Abdominal Pain, Nausea, Vomiting Genitourinary: Reports: No Symptoms Musculoskeletal: Reports: No Symptoms Skin: Denies: Cyanosis, Pallor, Diaphoresis, Bruising, Rash Neurological: Denies: Seizure, Trouble Speaking, Weakness, Gait Disturbance Psychiatric: Denies: Depression, Anxiety, Agitation, Hallucinations Systems Review Comment: No overnight or acute issues. He is doing relatively well. He has no new complaints. - Patient Data Vitals - Most Recent: Last Vital Signs Temp 36.3 C 11/12/19 08:00 Pulse 59 L 11/12/19 07:59 Resp 18 11/12/19 08:00 BP 119/74 11/12/19 07:59 Pulse Ox 97 11/12/19 08:00 Weight - Most Recent: 66.769 kg I&O - Last 24 hours: Intake & Output 11/11/19 11/12/19 11/12/19 22:59 06:59 14:59 Intake Total 1960 Balance 1960 Lab Results - Last 24 hrs: Laboratory Results - last 24 hr 11/11/19 11/11/19 11/12/19 Range/Units 17:50 20:43 04:25 WBC (4.23-9.07) K/mm3 RBC (4.63-6.08) M/mm3 Hgb (13.7-17.5) gm/dl Hct (40.1-51.0) % MCV (79.0-92.2) fl MCH (25.7-32.2) pg MCHC (32.2-35.5) g/dl RDW Std Deviation (35.1-43.9) fL Plt Count (163-337) K/mm3 MPV (9.4-12.3) fl Neut % (Auto) (34.0-67.9) % Lymph % (Auto) (21.8-53.1) % Tyrrell % (Auto) (5.3-12.2) % Eos % (Auto) (0.8-7.0) Baso % (Auto) (0.1-1.2) % Neut # (Auto) (1.78-5.38) K/mm3 Lymph # (Auto) (1.32-3.57) K/mm3 Tyrrell # (Auto) (0.30-0.82) K/mm3 Eos # (Auto) (0.04-0.54) K/mm3 Baso # (Auto) (0.01-0.08) K/mm3 Manual Slide Review Sodium (136-145) mEq/L Potassium (3.5-5.1) mEq/L Chloride (98-107) mEq/L Carbon Dioxide (21-32) mEq/L Anion Gap (5-15) BUN (7-18) mg/dL Creatinine (0.7-1.3) mg/dL Est Cr Clr Drug Dosing mL/min Estimated GFR (MDRD) (>60) mL/min BUN/Creatinine Ratio (14-18) Glucose (74-106) mg/dL POC Glucose 139 H 193 H 74 (70-105) mg/dL Calcium (8.5-10.1) mg/dL Magnesium (1.8-2.4) mg/dl 11/12/19 11/12/19 11/12/19 Range/Units 04:26 04:26 11:21 WBC 9.78 H (4.23-9.07) K/mm3 RBC 4.38 L (4.63-6.08) M/mm3 Hgb 13.0 L (13.7-17.5) gm/dl Hct 39.6 L (40.1-51.0) % MCV 90.4 (79.0-92.2) fl MCH 29.7 (25.7-32.2) pg MCHC 32.8 (32.2-35.5) g/dl RDW Std Deviation 45.7 H (35.1-43.9) fL Plt Count 485 H (163-337) K/mm3 MPV 9.2 L (9.4-12.3) fl Neut % (Auto) 73.3 H (34.0-67.9) % Lymph % (Auto) 16.8 L (21.8-53.1) % Tyrrell % (Auto) 8.4 (5.3-12.2) % Eos % (Auto) 0.5 L (0.8-7.0) Baso % (Auto) 0.1 (0.1-1.2) % Neut # (Auto) 7.17 H (1.78-5.38) K/mm3 Lymph # (Auto) 1.64 (1.32-3.57) K/mm3 Tyrrell # (Auto) 0.82 (0.30-0.82) K/mm3 Eos # (Auto) 0.05 (0.04-0.54) K/mm3 Baso # (Auto) 0.01 (0.01-0.08) K/mm3 Manual Slide Review Normal smear Sodium 141 (136-145) mEq/L Potassium 3.8 (3.5-5.1) mEq/L Chloride 107 (98-107) mEq/L Carbon Dioxide 25 (21-32) mEq/L Anion Gap 12.8 (5-15) BUN 21 H (7-18) mg/dL Creatinine 0.6 L (0.7-1.3) mg/dL Est Cr Clr Drug Dosing 129.83 mL/min Estimated GFR (MDRD) > 60 (>60) mL/min BUN/Creatinine Ratio 35.0 H (14-18) Glucose 77 (74-106) mg/dL POC Glucose 98 (70-105) mg/dL Calcium 8.1 L (8.5-10.1) mg/dL Magnesium 1.6 L (1.8-2.4) mg/dl MIGUEL Results - Last 24 hrs: Microbiology 11/08/19 08:47 Aerobic Blood Culture - Preliminary Blood - Venous - Lab Draw NO GROWTH AFTER 4 DAYS Anaerobic Blood Culture - Preliminary NO GROWTH AFTER 4 DAYS 11/08/19 08:35 Aerobic Blood Culture - Preliminary Blood - Venous NO GROWTH AFTER 4 DAYS Anaerobic Blood Culture - Preliminary NO GROWTH AFTER 4 DAYS 11/06/19 13:15 Gram Stain - Final Back - Left Upper Anaerobic Culture - Preliminary Probable Anaerobic Gp Bacilli Probable Anaerobic Gp Cocci 11/05/19 08:25 Aerobic Blood Culture - Preliminary Blood - Venous - Lab Draw NO GROWTH AFTER 6 DAYS Anaerobic Blood Culture - Preliminary NO GROWTH AFTER 6 DAYS 11/05/19 08:10 Aerobic Blood Culture - Final Blood - Venous Streptococcus Pneumoniae Anaerobic Blood Culture - Preliminary NO GROWTH AFTER 6 DAYS 11/06/19 13:15 Gram Stain - Final Back Anaerobic Culture - Preliminary Probable Anaerobic Gp Bacilli Probable Anaerobic Gp Cocci Med Orders - Current: Current Medications Acetaminophen (Tylenol) 650 mg PO Q4H PRN PRN Reason: Pain (Mild 1-3)/fever Last Admin: 11/06/19 19:58 Dose: 650 mg Amiodarone HCl (Cordarone) 200 mg PO BID [facility] Last Admin: 11/12/19 08:03 Dose: 200 mg Benzonatate (Tessalon Perles) 100 mg PO TID [facility] Last Admin: 11/12/19 08:03 Dose: 100 mg Dextrose/Water (Dextrose 50% In Water) 0 ml IV ASDIRECTED PRN PRN Reason: Hypoglycemia Diltiazem HCl (Cardizem) 10 mg IVPUSH Q4HR PRN PRN Reason: Arrhythmia Last Admin: 11/09/19 06:40 Dose: 10 mg Diphenhydr/Magaldrate/Simeth/Lidoca (First-Mouthwash Blm Susp) 30 ml PO Q8H PRN PRN Reason: Other Last Admin: 11/11/19 17:57 Dose: 30 ml Famotidine (Pepcid) 20 mg PO Q12H [facility] Last Admin: 11/12/19 08:03 Dose: 20 mg Glipizide (Glucotrol) 5 mg PO BIDMEALS [facility] Last Admin: 11/12/19 06:19 Dose: 5 mg Guaifenesin (Mucinex) 600 mg PO BID [facility] Last Admin: 11/12/19 08:03 Dose: 600 mg Guaifenesin/Phenylephrine HCl (Robitussin Dm) 10 ml PO Q4H PRN PRN Reason: Cough Last Admin: 11/09/19 22:26 Dose: 10 ml Insulin Glargine (Lantus) 5 unit SUBCUT BIDAC [facility] Last Admin: 11/12/19 06:19 Dose: 5 units Insulin Human Lispro (Humalog) 0 unit SUBCUT QIDACANDBED [facility]; Protocol Last Admin: 11/12/19 11:25 Dose: Not Given Levalbuterol HCl (Xopenex) 1.25 mg NEB Q6HRRT PRN PRN Reason: sob/wheezing Levofloxacin (Levaquin) 750 mg PO 1200 [facility] Last Admin: 11/12/19 11:45 Dose: 750 mg Lorazepam (Ativan) 0 mg IV ASDIRECTED KYLEE; Protocol Lorazepam (Ativan) 0 mg IVPUSH Q4H PRN; Protocol PRN Reason: Withdrawal Symptoms Metoprolol Tartrate (Lopressor) 50 mg PO Q12H [facility] Last Admin: 11/12/19 07:59 Dose: 50 mg Miscellaneous Information (Remove Patch) 1 ea TRDERM DAILY [facility] Last Admin: 11/12/19 08:04 Dose: Not Given Nicotine (Habitrol) 21 mg TRDERM DAILY [facility] Last Admin: 11/12/19 08:04 Dose: Not Given Brimonidine/Timolol (Eye Drop Ptom) 1 drop EYELF BID [facility] Last Admin: 11/12/19 08:04 Dose: 1 drop Prednisone (Prednisone) 20 mg PO WITHBREAKFAST [facility] Last Admin: 11/12/19 06:19 Dose: 20 mg Rivaroxaban (Xarelto) 20 mg PO DAILY [facility] Last Admin: 11/12/19 08:03 Dose: 20 mg Sodium Chloride (Saline Flush) 10 ml FLUSH ASDIRECTED PRN PRN Reason: Keep Vein Open Last Admin: 11/09/19 06:44 Dose: 10 ml Temazepam (Restoril) 30 mg PO BEDTIME PRN PRN Reason: Insomnia Last Admin: 11/09/19 22:26 Dose: 30 mg Thiamine HCl (Vitamin B-1) 100 mg PO DAILY [facility] Last Admin: 11/12/19 08:03 Dose: 100 mg Discontinued Medications Albuterol (Proventil Neb Soln) 2.5 mg NEB ONETIME ONE Stop: 11/05/19 09:31 Last Admin: 11/05/19 10:05 Dose: 2.5 mg Albuterol/Ipratropium (Duoneb 3.0-0.5 Mg/3 Ml) 3 ml NEB ONETIME ONE Stop: 11/05/19 07:56 Last Admin: 11/05/19 08:02 Dose: 3 ml Albuterol/Ipratropium (Duoneb 3.0-0.5 Mg/3 Ml) 3 ml NEB Q4HRRT [facility] Last Admin: 11/07/19 09:03 Dose: 3 ml Clonidine HCl (Catapres) 0.1 mg PO Q4H PRN PRN Reason: Agitation Diltiazem HCl (Cardizem) 10 mg IVPUSH ONETIME ONE Stop: 11/06/19 20:37 Last Admin: 11/06/19 20:42 Dose: 10 mg Diltiazem HCl (Dilacor Xr) 240 mg PO DAILY [facility] Diltiazem HCl (Dilacor Xr) 240 mg PO DAILY [facility] Last Admin: 11/08/19 07:22 Dose: 240 mg Diltiazem HCl (Cardizem Cd) 120 mg PO DAILY [facility] Diltiazem HCl (Cardizem) 10 mg IVPUSH ONETIME ONE Stop: 11/08/19 08:35 Last Admin: 11/08/19 08:45 Dose: 10 mg Diltiazem HCl (Cardizem Cd) 180 mg PO DAILY [facility] Diltiazem HCl (Cardizem) 60 mg PO Q6HR [facility] Last Admin: 11/09/19 08:18 Dose: 60 mg Diltiazem HCl (Cardizem) 60 mg PO Q6H [facility] Last Admin: 11/11/19 02:05 Dose: 60 mg Diphenhydr/Magaldrate/Simeth/Lidoca (First-Mouthwash Blm Susp) 30 ml PO Q8HR PRN PRN Reason: Other Enoxaparin Sodium (Lovenox) 30 mg SUBCUT Q24H [facility] Famotidine (Pepcid) 20 mg PO Q12H [facility] Last Admin: 11/11/19 10:14 Dose: Not Given Fentanyl (Sublimaze) 25 mcg IVPUSH DAILY PRN PRN Reason: Wound Care Last Admin: 11/09/19 16:55 Dose: 25 mcg Fentanyl (Sublimaze) 50 mcg IVPUSH DAILY PRN PRN Reason: Wound Care Folic Acid (Folic Acid) 1 mg PO DAILY [facility] Stop: 11/11/19 09:01 Last Admin: 11/11/19 08:22 Dose: 1 mg Glipizide (Glucotrol) 2.5 mg PO BIDMEALS [facility] Last Admin: 11/09/19 06:39 Dose: 2.5 mg Haloperidol Lactate (Haldol) 2 mg IM Q4H PRN PRN Reason: Agitation Hydromorphone HCl (Dilaudid) 0.5 mg IVPUSH ONETIME ONE Stop: 11/05/19 08:53 Last Admin: 11/05/19 09:00 Dose: 0.5 mg Ceftriaxone Sodium 2 gm/ (Sodium Chloride) 100 mls @ 200 mls/hr IV ONETIME ONE Stop: 11/05/19 08:25 Last Admin: 11/05/19 08:34 Dose: 200 mls/hr Sodium Chloride (Normal Saline) 1,000 mls @ 125 mls/hr IV ASDIRECTED KYLEE Last Admin: 11/06/19 09:10 Dose: 125 mls/hr Levofloxacin/Dextrose 750 mg/ (Premix) 150 mls @ 100 mls/hr IV Q24H KYLEE Last Admin: 11/09/19 11:51 Dose: 100 mls/hr Sodium Chloride (Normal Saline) 1,000 mls @ 75 mls/hr IV ASDIRECTED KYLEE Diltiazem HCl 125 mg/ Sodium (Chloride) 125 mls @ 5 mls/hr IV TITRATE KYLEE; Protocol Last Titration: 11/07/19 21:37 Dose: 0 mg/hr, 0 mls/hr Magnesium Sulfate 2 gm/ Premix 50 mls @ 25 mls/hr IV ONETIME ONE Stop: 11/08/19 10:29 Last Admin: 11/08/19 09:28 Dose: 25 mls/hr Amiodarone HCl/Dextrose (Nexterone In Dextrose 150 Mg/100 Ml) 100 mls @ 600 mls /hr IV BOLUS ONE; Protocol Stop: 11/08/19 08:44 Last Admin: 11/08/19 09:05 Dose: 600 mls/hr Amiodarone HCl/Dextrose (Nexterone In Dextrose 360 Mg/200 Ml) 360 mg in 200 mls @ 33.333 mls/hr IV ASDIRECTED KYLEE; Protocol Stop: 11/08/19 15:29 Last Admin: 11/08/19 09:22 Dose: 33.333 mls/hr Amiodarone HCl/Dextrose (Nexterone In Dextrose 360 Mg/200 Ml) 360 mg in 200 mls @ 16.7 mls/hr IV ASDIRECTED KYLEE; Protocol Stop: 11/09/19 09:29 Last Admin: 11/09/19 02:56 Dose: 16.7 mls/hr Amiodarone HCl/Dextrose (Nexterone In Dextrose 360 Mg/200 Ml) 360 mg in 200 mls @ 16.7 mls/hr IV ASDIRECTED [facility]; Protocol Stop: 11/10/19 09:31 Last Admin: 11/10/19 02:34 Dose: 16.7 mls/hr Magnesium Sulfate 2 gm/ Premix 50 mls @ 25 mls/hr IV ONETIME ONE Stop: 11/12/19 10:07 Last Admin: 11/12/19 08:48 Dose: 25 mls/hr Insulin Human Lispro (Humalog) 0 unit SUBCUT Q6H PRN; Protocol PRN Reason: Hyperglycemia Last Admin: 11/10/19 17:47 Dose: 9 units Levalbuterol HCl (Xopenex) 1.25 mg NEB Q6HRRT [facility] Last Admin: 11/11/19 08:00 Dose: 1.25 mg Lidocaine HCl (Xylocaine 1%) 0 ml INJECT ONETIME ONE Stop: 11/06/19 14:01 Last Admin: 11/06/19 16:24 Dose: 5 ml Methylprednisolone Sodium Succinate (Solu-Medrol) 125 mg IVPUSH ONETIME ONE Stop: 11/05/19 07:56 Last Admin: 11/05/19 08:19 Dose: 125 mg Methylprednisolone Sodium Succinate (Solu-Medrol) 40 mg IVPUSH Q8H [facility] Last Admin: 11/10/19 03:11 Dose: 40 mg Methylprednisolone Sodium Succinate (Solu-Medrol) 40 mg IVPUSH BID [facility] Last Admin: 11/10/19 20:18 Dose: 40 mg Methylprednisolone Sodium Succinate (Solu-Medrol) 40 mg IVPUSH DAILY [facility] Metoprolol Tartrate (Lopressor) 25 mg PO Q12H [facility] Last Admin: 11/07/19 09:08 Dose: 25 mg Metoprolol Tartrate (Lopressor) Confirm Administered Dose 5 mg .ROUTE .STK-MED ONE Stop: 11/07/19 15:28 Last Admin: 11/07/19 15:35 Dose: Not Given Metoprolol Tartrate (Lopressor) 5 mg IVPUSH Q4H PRN PRN Reason: Tachycardia Last Admin: 11/08/19 08:05 Dose: 5 mg Metoprolol Tartrate (Lopressor) 50 mg PO Q12H [facility] Last Admin: 11/07/19 20:20 Dose: 50 mg Metoprolol Tartrate (Lopressor) 75 mg PO Q12H [facility] Metoprolol Tartrate (Lopressor) 50 mg PO BID [facility] Last Admin: 11/08/19 20:13 Dose: 50 mg Metoprolol Tartrate (Lopressor) 75 mg PO BID [facility] Metoprolol Tartrate (Lopressor) 50 mg PO QID [facility] Metoprolol Tartrate (Lopressor) 100 mg PO QID [facility] Metoprolol Tartrate (Lopressor) 100 mg PO BID [facility] Last Admin: 11/10/19 20:12 Dose: 100 mg Metoprolol Tartrate (Lopressor) 75 mg PO BID [facility] Last Admin: 11/11/19 20:45 Dose: 75 mg Multivitamins (Thera) 1 each PO ONETIME ONE Stop: 11/09/19 07:53 Last Admin: 11/09/19 08:17 Dose: 1 each Oseltamivir Phosphate (Tamiflu) 75 mg PO BID [facility] Stop: 11/11/19 21:01 Last Admin: 11/11/19 20:47 Dose: 75 mg - Exam General: Reports: Alert, Oriented, Cooperative, No Acute Distress HEENT: Reports: Pupils Equal, Pupils Reactive, EOMI, Mucous Membr. Moist/Avimor Neck: Reports: Supple Lungs: Reports: Clear to Auscultation, Normal Respiratory Effort Cardiovascular: Reports: Regular Rate, Regular Rhythm GI/Abdominal Exam: Normal Bowel Sounds, Soft, Non-Tender, No Organomegaly, No Distention, No Abnormal Bruit (Male) Exam: Deferred Rectal (Males) Exam: Deferred Back Exam: Reports: Normal Inspection, Decreased Range of Motion Extremities: Normal Inspection, Normal Range of Motion, Non-Tender, No Pedal Edema, Normal Capillary Refill Skin: Reports: Warm, Dry Wound/Incisions: Reports: Healing Well, Dressing Dry and Intact, No Drainage Neurological: Reports: No New Focal Deficit, Normal Gait Psy/Mental Status: Reports: Alert, Normal Affect, Normal Mood
== END 2019-11-12 13:16 | disposition home or self-care (01) | DRG 194 ==
LOC: JD.ED 07:34 → JD.MS 11:05 → JD.ICU 11-06 21:44
PROVIDERS: ADMIT Internal Medicine; ATTEND Internal Medicine
PROC: 0H9CXZZ Drainage of Left Upper Arm Skin, External Approach (ICD-10-PCS; principal; 2019-11-06)
DX: J10.08 Influenza due to other identified influenza virus with other specified pneumonia (principal); E87.1 Hypo-osmolality and hyponatremia; B37.0 Candidal stomatitis; J13 Pneumonia due to Streptococcus pneumoniae; F17.210 Nicotine dependence, cigarettes, uncomplicated; J44.9 Chronic obstructive pulmonary disease, unspecified; E83.42 Hypomagnesemia; I48.91 Unspecified atrial fibrillation; R63.4 Abnormal weight loss; R09.02 Hypoxemia; D69.6 Thrombocytopenia, unspecified; E88.09 Other disorders of plasma-protein metabolism, not elsewhere classified; R73.03 Prediabetes; R73.9 Hyperglycemia, unspecified; L02.232 Carbuncle of back [any part, except buttock and flank]; E05.90 Thyrotoxicosis, unspecified without thyrotoxic crisis or storm; Z79.01 Long term (current) use of anticoagulants; Z79.899 Other long term (current) drug therapy; Z79.2 Long term (current) use of antibiotics; Z79.84 Long term (current) use of oral hypoglycemic drugs; Z99.81 Dependence on supplemental oxygen; Z71.6 Tobacco abuse counseling; Z79.51 Long term (current) use of inhaled steroids
CPT/HCPCS: 36415; 36600; 71045; 71045-26; 71046; 71046-26; 80048; 80053; 82803; 82962; 83036; 83605; 83735; 84100; 84134; 84439; 84443; 85025; 86140; 86361; 86738; 87040; 87070; 87075; 87076; 87077; 87181; 87184; 87205; 87486; 87581; 87632; 87798; 87804; 87899; 93005; 93306; 94640; 94667; 94668; 94760; 94761; 96361; 96365; 96375; 97161-GP; 99284; 99285-25; A9270-GY; G0433; G0475; J0282; J0696; J1170; J1815-GY; J1956; J2001; J2920; J2930; J3010; J3475; J3490; J7030; J7050; J7612-GY; J7620-GY